=== PATIENT | male | born 1990 | race African-American/Black ===

== ENCOUNTER 2016-09-23 13:37 | Emergency (ER) | payer MEDICARE, MEDICAID ==
[~2016-09-23] VITALS: Ht 180.3 cm; Wt 141.5 kg
[~2016-09-23 13:37] MED LIST: B-CO-5 PO; CALC0.25 PO; CARV3.1240 PO; CINA30TA2 PO; CLON0.2T PO; DILT-5 PO; LOSA100T27 PO; MINO10TA2 PO; NIF10C PO; OMEP20CA5 PO; TERA2CAP45 PO
[2016-09-23 15:03] LABS: Basophils # (auto) 0 uL; Basophils % (auto) 0.2 % (0.0-2.0); Eosinophils # (auto) 0.6 uL; Eosinophils % (auto) 5.2 % (0.0-7.0); Hematocrit 37.6 % (41.0-53.0); Hemoglobin 12.5 g/dL (13.5-17.5); Lymphocytes # (auto) 1.3 uL; Lymphocytes % (auto) 11.1 % (10.0-50.0); Mean Corpuscular Hemoglobin 28.6 pg (28.0-32.0); Mean Corpuscular Hgb Conc. 33.2 g/dL (32.0-36.0); Mean Corpuscular Volume 86.3 fL (80.0-100.0); Mean Platelet Volume 7.3 fL (7.4-10.4); Monocytes # (auto) 0.7 uL; Monocytes % (auto) 5.8 % (0.0-12.0); Neutrophils # (auto) 9.2 uL; Neutrophils % (auto) 77.7 % (37.0-80.0); Platelet Count (auto) 291 10^3/uL (140-450); Red Cell Distribution Width 13.5 % (11.6-16.0); White Blood Cell 11.9 10^3/uL (4.4-10.8)
[2016-09-23 15:25] LABS: Albumin 3.6 g/dL (3.4-5.0); Alkaline Phosphatase 56 U/L (45-117); Anion Gap 14 (5-15); Aspartate Aminotransferase < 3 U/L (15-37); BUN/Creatinine Ratio 6.2; Bilirubin, Total 0.3 mg/dL (0.2-1.0); Calcium 8.9 mg/dL (8.5-10.1); Carbon Dioxide 23 mmol/L (21-32); Chloride 100 mmol/L (98-107); GFR African American 6 mL/min; GFR Non-African American 5 mL/min; Glucose 102 mg/dL (74-106); Potassium 4.6 mmol/L (3.5-5.1); Sodium 137 mmol/L (136-145); Total Protein 8.6 g/dL (6.4-8.2)
[2016-09-23 15:34] LABS: Blood Urea Nitrogen 85 mg/dL (7-18)
[2016-09-23 15:42] VITALS: BP 131/73
[2016-09-23] MEDS ORDERED: HYDROcodone-ACET 5/325MG TAB PO ONE (16:00)
[2016-09-23] MEDS ORDERED: cefTRIAXone W LIDOCAINE 1 GM IM IM ONE (16:00)
== END 2016-09-23 17:45 | disposition home or self-care (01) ==
LOC: ER 13:46
CPT/HCPCS: 36415 ×2; 72070 ×2; 80053 ×2; 84484 ×2; 85025 ×2; 96372 ×2; 99285; J0696 ×2

== ENCOUNTER 2016-11-14 15:21 | Emergency (ER) | payer MEDICARE, MEDICAID ==
[~2016-11-14] VITALS: Ht 180.3 cm; Wt 136.1 kg
[~2016-11-14 15:21] MED LIST changes: -OMEP20CA5 PO; +OMEP20CA74 PO
[2016-11-14 16:16] LABS: Basophils # (auto) 0 uL; Basophils % (auto) 0.2 % (0.0-2.0); CONDITION AutoValidated; Eosinophils # (auto) 0.6 uL; Eosinophils % (auto) 5.8 % (0.0-7.0); Hematocrit 36.5 % (41.0-53.0); Hemoglobin 12.5 g/dL (13.5-17.5); Lymphocytes # (auto) 1.2 uL; Lymphocytes % (auto) 10.6 % (10.0-50.0); Mean Corpuscular Hemoglobin 29.5 pg (28.0-32.0); Mean Corpuscular Hgb Conc. 34.2 g/dL (32.0-36.0); Mean Corpuscular Volume 86.4 fL (80.0-100.0); Mean Platelet Volume 6.9 fL (7.4-10.4); Monocytes # (auto) 0.8 uL; Monocytes % (auto) 7.2 % (0.0-12.0); Neutrophils # (auto) 8.6 uL; Neutrophils % (auto) 76.2 % (37.0-80.0); Platelet Count (auto) 272 10^3/uL (140-450); Red Cell Distribution Width 13.3 % (11.6-16.0); White Blood Cell 11.2 10^3/uL (4.4-10.8)
[2016-11-14 16:28] LABS: Albumin 3.7 g/dL (3.4-5.0); Anion Gap 14 (5-15); Blood Urea Nitrogen 73 mg/dL (7-18); Calcium 7.6 mg/dL (8.5-10.1); Carbon Dioxide 23 mmol/L (21-32); Chloride 102 mmol/L (98-107); Glucose 90 mg/dL (74-106); Potassium 4.1 mmol/L (3.5-5.1); Sodium 139 mmol/L (136-145)
[2016-11-14 16:36] LABS: Alkaline Phosphatase 70 U/L (45-117); BUN/Creatinine Ratio 5.3; Bilirubin, Total 0.3 mg/dL (0.2-1.0); GFR African American 6 mL/min; GFR Non-African American 5 mL/min; Total Protein 8.5 g/dL (6.4-8.2)
[2016-11-14 16:54] LABS: Aspartate Aminotransferase < 3 U/L (15-37)
[2016-11-14] MEDS ORDERED: cloNIDine HCL 0.1 MG TAB PO ONE (21:45)
[2016-11-14 22:35] LABS: B-Type Natriuretic Peptide 39.4 pg/mL (0-100)
[2016-11-14 22:37] LABS: Temperature: 22.9 C (20.0-25.0)
[2016-11-14] MEDS ORDERED: MORPHINE SULFATE 4 MG/ML SYRG IV ONE (22:45)
[2016-11-14] MEDS ORDERED: ONDANSETRON HCL 4 MG/2 ML VIAL IV ONE (22:45)
[2016-11-14] MEDS ORDERED: METOPROLOL TARTRATE 50 MG TAB PO ONE (23:00)
[2016-11-14] MEDS ORDERED: diphenhdrAMINE HCL 50 MG/1 ML VL IV ONE (23:00)
[2016-11-15 00:46] VITALS: BP 156/106
== END 2016-11-15 01:46 | disposition home or self-care (01) ==
LOC: ER 15:26
DX: L30.9 Dermatitis, unspecified (principal); I13.2 Hypertensive heart and chronic kidney disease with heart failure and with stage 5 chronic kidney disease, or end stage renal disease; I50.9 Heart failure, unspecified; N18.6 End stage renal disease; E78.5 Hyperlipidemia, unspecified; E07.9 Disorder of thyroid, unspecified; Z79.899 Other long term (current) drug therapy; Z99.2 Dependence on renal dialysis
CPT/HCPCS: 36415; 80053; 83880; 85025; 93971; 96374; 96375; 99285; J1200; J2270; J2405

== ENCOUNTER 2017-11-09 04:40 | Inpatient (IN) | payer MEDICARE, MEDICAID ==
[~2017-11-09] VITALS: Ht 180.3 cm; Wt 137.6 kg
[2017-11-09 06:03] LABS: Basophils # (auto) 0.1 uL; Basophils % (auto) 0.7 % (0.0-2.0); Eosinophils # (auto) 0.8 uL; Eosinophils % (auto) 7.2 % (0.0-7.0); Hematocrit 33.9 % (41.0-53.0); Hemoglobin 11.5 g/dL (13.5-17.5); Lymphocytes # (auto) 1.5 uL; Lymphocytes % (auto) 14.1 % (10.0-50.0); Mean Corpuscular Hemoglobin 29.1 pg (28.0-32.0); Mean Corpuscular Hgb Conc. 33.9 g/dL (32.0-36.0); Mean Corpuscular Volume 85.7 fL (80.0-100.0); Monocytes # (auto) 1.1 uL; Monocytes % (auto) 10.2 % (0.0-12.0); Neutrophils # (auto) 7.5 uL; Neutrophils % (auto) 67.8 % (37.0-80.0); Platelet Count (auto) 262 10^3/uL (140-450); Red Blood Cells 3.96 10^6/uL (4.5-5.90); Red Cell Distribution Width 13.7 % (11.8-14.3)
[2017-11-09 06:10] LABS: Albumin 3.5 g/dL (3.4-5.0); Calcium 8.1 mg/dL (8.5-10.1); Potassium 3.7 mmol/L (3.5-5.1)
[2017-11-09 06:11] LABS: INR 0.97 (0.9-1.15); Partial Thromboplastin Time 32.4 sec (23.78-33.04); Prothrombin Time 10.4 sec (9.27-12.13)
[2017-11-09 06:19] LABS: BUN/Creatinine Ratio 3.7; Bilirubin, Total 0.2 mg/dL (0.2-1.0); Total Protein 8.2 g/dL (6.4-8.2)
[2017-11-09] MEDS ORDERED: MORPHINE SULF(PF) 0.5MG/ML 10ML VIAL ONE (08:57)
[2017-11-09] MEDS ORDERED: ONDANSETRON HCL 4 MG/2 ML VIAL IV ONE (09:00)
[2017-11-09] MEDS ORDERED: MORPHINE SULFATE 8mg/ml INJ SDV IV ONE (09:00)
[2017-11-09] MEDS ORDERED: cloNIDine HCL 0.1 MG TAB PO ONE (10:15)
[2017-11-09] MEDS ORDERED: LABETALOL HCL 5 MG/ML ML 20ML VIAL IV ONE (10:15)
[2017-11-09] MEDS ORDERED: PROMETHAZINE HCL 25 MG/ML 1ML IV PRN (10:45)
[2017-11-09] MEDS ORDERED: TEMAZEPAM 15 MG CAP PO PRN (10:45)
[2017-11-09] MEDS ORDERED: NITROGLYCERIN 0.4 MG SL TAB SL PRN (10:45)
[2017-11-09] MEDS ORDERED: MORPHINE SULF(PF) 0.5MG/ML 10ML VIAL IV PRN (10:45)
[2017-11-09] MEDS ORDERED: ACETAMINOPHEN 500 MG TAB PO PRN (10:45)
[2017-11-09] MEDS ORDERED: LACTULOSE 20Gm/30ML SOLN PO PRN (10:45)
[2017-11-09] MEDS: CARVEDILOL 3.125 MG TAB PO SCH ×2 (10:45→21:54)
[2017-11-09] MEDS ORDERED: MORPHINE SULFATE 8mg/ml INJ SDV IV PRN (10:45)
[2017-11-09] MEDS ORDERED: LORazepam 0.5 MG TAB PO PRN (10:45)
[2017-11-09 12:13] LABS: Phosphorus 6.1 mg/dL (2.5-4.90); Uric Acid 4.7 mg/dL (3.5-7.2)
[2017-11-09] MEDS: B-COMPLEX W/ C & FOLIC ACID(NEPHROVITE TAB) PO SCH (12:17)
[2017-11-09] MEDS ORDERED: IOHEXOL 350 MG/ML 100ML IJ ONE (13:35)
[2017-11-09] MEDS: SODIUM CHLOR 0.9% PF (SALINE LOCK) 10ML VIAL/SYR IV SCH ×2 (14:00→21:54)
[2017-11-09] MEDS: SEVELAMER 800 MG TAB PO SCH (15:27)
[2017-11-09] MEDS: ISOSORBIDE DINITRATE 10 MG TAB PO SCH ×2 (15:27→21:51)
[2017-11-09 17:00] VITALS: BP 165/84
[2017-11-09] MEDS ORDERED: CINA30TA2 PO (17:59)
[2017-11-09] MEDS ORDERED: DILT60TA27 PO (17:59)
[2017-11-09] MEDS ORDERED: B-CO-5 PO (17:59)
[2017-11-09] MEDS ORDERED: OMEP20TA PO (17:59)
[2017-11-09] MEDS ORDERED: MIN25T PO (17:59)
[2017-11-09] MEDS: LOSARTAN POTASSIUM 50 MG TAB PO SCH ×2 (18:00→21:56)
[2017-11-09 20:00] VITALS: BP 145/83
[2017-11-09] MEDS: HYDROcodone-ACET 5/325MG TAB PO PRN (20:36)
[2017-11-09] MEDS: ATORVASTATIN 20 MG TAB PO SCH (21:17)
[2017-11-09] MEDS: cloNIDine HCL 0.1 MG TAB PO SCH (21:51)
[2017-11-09] MEDS ORDERED: MINOXIDIL 10 MG TAB PO SCH (22:00)
[2017-11-09] MEDS: TERAZOSIN HCL 1 MG CAP PO SCH (22:20)
[2017-11-09 22:58] VITALS: BP 145/83
[2017-11-10] VITALS (8 sets, daily range): BP systolic 96–131; BP diastolic 40–87
[2017-11-10] MEDS: HYDROcodone-ACET 5/325MG TAB PO PRN (04:38)
[2017-11-10] MEDS: ISOSORBIDE DINITRATE 10 MG TAB PO SCH ×3 (05:50→22:00)
[2017-11-10] MEDS: SODIUM CHLOR 0.9% PF (SALINE LOCK) 10ML VIAL/SYR IV SCH ×3 (05:51→22:38)
[2017-11-10 06:26] LABS: Basophils # (auto) 0 uL; Basophils % (auto) 0.3 % (0.0-2.0); Eosinophils # (auto) 0.7 uL; Eosinophils % (auto) 6.9 % (0.0-7.0); Hematocrit 33.4 % (41.0-53.0); Hemoglobin 11.2 g/dL (13.5-17.5); Lymphocytes # (auto) 1.3 uL; Lymphocytes % (auto) 13.9 % (10.0-50.0); Mean Corpuscular Hemoglobin 29.3 pg (28.0-32.0); Mean Corpuscular Hgb Conc. 33.6 g/dL (32.0-36.0); Mean Corpuscular Volume 87.3 fL (80.0-100.0); Monocytes # (auto) 0.9 uL; Monocytes % (auto) 9.3 % (0.0-12.0); Neutrophils # (auto) 6.7 uL; Neutrophils % (auto) 69.6 % (37.0-80.0); Nucleated Red Blood Cells % 0.1 %; Platelet Count (auto) 233 10^3/uL (140-450); Red Blood Cells 3.82 10^6/uL (4.5-5.90); Red Cell Distribution Width 13.7 % (11.8-14.3); White Blood Cell 9.7 10^3/uL (4.4-10.8)
[2017-11-10 06:57] LABS: Alanine Aminotransferase 12 U/L (16-61); Albumin 3.5 g/dL (3.4-5.0); Alkaline Phosphatase 43 U/L (45-117); Anion Gap 10 (5-15); Aspartate Aminotransferase < 3 U/L (15-37); BUN/Creatinine Ratio 3.6; Bilirubin, Total 0.2 mg/dL (0.2-1.0); Blood Urea Nitrogen 36 mg/dL (7-18); Calcium 8.2 mg/dL (8.5-10.1); Carbon Dioxide 30 mmol/L (21-32); Chloride 97 mmol/L (98-107); Cholesterol 146 mg/dL (< 200); GFR African American 8 mL/min; GFR Non-African American 7 mL/min; Glucose 118 mg/dL (74-106); HDL Cholesterol 30 mg/dL (40-59); LDL Cholesterol 100 mg/dL (< 100); Potassium 4.1 mmol/L (3.5-5.1); Sodium 137 mmol/L (136-145); Triglycerides 131 mg/dL (< 150)
[2017-11-10] MEDS: SEVELAMER 800 MG TAB PO SCH ×3 (08:00→18:00)
[2017-11-10] MEDS: B-COMPLEX W/ C & FOLIC ACID(NEPHROVITE TAB) PO SCH (10:00)
[2017-11-10] MEDS ORDERED: NIFEdipine 10 MG CAP PO SCH (10:00)
[2017-11-10] MEDS ORDERED: CINACALCET HYDROCHLORIDE 30 MG TAB PO SCH (10:00)
[2017-11-10] MEDS ORDERED: PANTOPRAZOLE 40 MG TAB PO SCH (10:00)
[2017-11-10] MEDS: CARVEDILOL 3.125 MG TAB PO SCH ×2 (10:00→22:00)
[2017-11-10] MEDS: cloNIDine HCL 0.1 MG TAB PO SCH ×2 (10:00→22:00)
[2017-11-10] MEDS ORDERED: ASPirin 81 mg TAB PO SCH (10:00)
[2017-11-10] MEDS ORDERED: OPTISON 3ml Vial for INJ IV ONE (10:04)
[2017-11-10] MEDS ORDERED: SODIUM CHL 0.9% 1000 ML BAG XX ONE (12:45)
[2017-11-10] MEDS ORDERED: OXYCODONE W/ ACETAMINOPHEN 5/325MG TABLET PO ONE (12:45)
[2017-11-10] MEDS: LOSARTAN POTASSIUM 50 MG TAB PO SCH (18:00)
[2017-11-10] MEDS: TERAZOSIN HCL 1 MG CAP PO SCH (22:00)
[2017-11-10] MEDS: ATORVASTATIN 20 MG TAB PO SCH (22:00)
[2017-11-11] MEDS ORDERED: SODIUM CHL 0.9% 1000 ML BAG XX ONE (09:00)
[2017-11-11] MEDS ORDERED: CALCITRIOL 0.25 MCG CAP PO SCH (10:00)
== END 2017-11-10 22:35 | disposition home or self-care (01) | DRG 291 ==
LOC: ER 04:56 → TELE 04:57 → TELE-WESTW 15:45
PROVIDERS: ADMIT Internal Medicine; ATTEND Internal Medicine
PROC: 5A1D70Z Performance of Urinary Filtration, Intermittent, Less than 6 Hours Per Day (ICD-10-PCS; principal; 2017-11-09)
DX: I13.2 Hypertensive heart and chronic kidney disease with heart failure and with stage 5 chronic kidney disease, or end stage renal disease (principal); N18.6 End stage renal disease; Z68.41 Body mass index [BMI] 40.0-44.9, adult; R07.81 Pleurodynia; I16.0 Hypertensive urgency; I50.9 Heart failure, unspecified; D63.8 Anemia in other chronic diseases classified elsewhere; D72.829 Elevated white blood cell count, unspecified; E03.9 Hypothyroidism, unspecified; E66.01 Morbid (severe) obesity due to excess calories; E78.5 Hyperlipidemia, unspecified; K59.00 Constipation, unspecified; F41.9 Anxiety disorder, unspecified; G47.00 Insomnia, unspecified; E83.39 Other disorders of phosphorus metabolism; K21.9 Gastro-esophageal reflux disease without esophagitis; K44.9 Diaphragmatic hernia without obstruction or gangrene; Z99.2 Dependence on renal dialysis; Z82.49 Family history of ischemic heart disease and other diseases of the circulatory system; Z83.3 Family history of diabetes mellitus; Z87.01 Personal history of pneumonia (recurrent); Z79.899 Other long term (current) drug therapy
CPT/HCPCS: 36415; 71045; 71275; 80053; 80061; 82550; 83970; 84100; 84443; 84484; 84550; 85025; 85379; 85610; 85652; 85730; 86141; 87081; 90935; 93005; 93017; 93306; 96374; 96375; J2405; Q9956

== ENCOUNTER 2018-07-19 04:16 | Emergency (ER) | payer MEDICARE, MEDICAID ==
[~2018-07-19] VITALS: Ht 180.3 cm; Wt 132.9 kg
[~2018-07-19 04:16] MED LIST changes: -DILT-5 PO; +DILT60TA27 PO; +LOSA-49 PO; -LOSA100T27 PO; +MIN25T PO; -MINO10TA2 PO; -NIF10C PO; -OMEP20CA74 PO; +OMEP20TA PO; -TERA2CAP45 PO
[2018-07-19 05:01] VITALS: BP 180/123
[2018-07-19 08:29] LABS: Basophils # (auto) 0 uL; Basophils % (auto) 0.3 % (0.0-2.0); Eosinophils # (auto) 0.8 uL; Hematocrit 34.1 % (41.0-53.0); Hemoglobin 11.5 g/dL (13.5-17.5); Lymphocytes # (auto) 1.5 uL; Mean Corpuscular Hemoglobin 29.5 pg (28.0-32.0); Mean Corpuscular Hgb Conc. 33.7 g/dL (32.0-36.0); Mean Corpuscular Volume 87.5 fL (80.0-100.0); Neutrophils # (auto) 10.7 uL; Neutrophils % (auto) 75.7 % (37.0-80.0); Platelet Count (auto) 250 10^3/uL (140-450); Red Cell Distribution Width 13.4 % (11.8-14.3); White Blood Cell 14.1 10^3/uL (4.4-10.8)
[2018-07-19 08:34] LABS: Albumin 3.8 g/dL (3.4-5.0); Anion Gap 9 (5-15); Blood Urea Nitrogen 56 mg/dL (7-18); Calcium 8.7 mg/dL (8.5-10.1); Carbon Dioxide 28 mmol/L (21-32); Chloride 99 mmol/L (98-107); Glucose 99 mg/dL (74-106); Magnesium 2.7 mg/dL (1.6-2.6); Potassium 3.9 mmol/L (3.5-5.1); Sodium 136 mmol/L (136-145)
[2018-07-19 08:42] LABS: Alanine Aminotransferase 8 U/L (16-61); Alkaline Phosphatase 56 U/L (45-117); Aspartate Aminotransferase < 3 U/L (15-37); BUN/Creatinine Ratio 4.6; Bilirubin, Total 0.3 mg/dL (0.2-1.0); GFR African American 6 mL/min; GFR Non-African American 5 mL/min; Total Protein 8.7 g/dL (6.4-8.2)
== END 2018-07-19 15:09 | disposition left against medical advice (07) ==
LOC: ER 04:16
DX: R03.0 Elevated blood-pressure reading, without diagnosis of hypertension (principal); R07.9 Chest pain, unspecified; Z53.21 Procedure and treatment not carried out due to patient leaving prior to being seen by health care provider
CPT/HCPCS: 36415; 80053; 83735; 84484; 85025; 93005

== ENCOUNTER 2018-11-15 07:05 | Day surgery (SDC) | payer MEDICARE, MEDICAID ==
[~2018-11-15] VITALS: Ht 180.3 cm; Wt 131.5 kg
[~2018-11-15 07:05] MED LIST changes: -B-CO-5 PO; +CARV25TA55 PO; -CARV3.1240 PO; +DILT-23 PO; +HYDR50TA15 PO
[2018-11-15] MEDS ORDERED: LIDOCAINE 2%HCL (LOCAL ANESTH.) INJ 20ML MDV ONE (07:37)
[2018-11-15] MEDS ORDERED: IODIXANOL 320MG/ML 100ML BTL IV ONE ×2 (07:37→08:06)
[2018-11-15] MEDS ORDERED: SODIUM CHL 0.9% 0 ML ONE (07:59)
[2018-11-15] MEDS ORDERED: fentaNYL CITRATE 100 MCG/2 ML VL ONE (07:59)
[2018-11-15] MEDS ORDERED: ANGIOMAX 250 MG VIAL IV ONE (07:59)
[2018-11-15] MEDS ORDERED: VERAPAMIL 2.5MG/ML INJ 2ML VIAL IV ONE (08:00)
[2018-11-15] MEDS ORDERED: MIDAZOLAM HCL 1MG/1ML-2 ML VIAL ONE ×2 (08:00→08:13)
== END 2018-11-15 11:10 | disposition home or self-care (01) ==
LOC: CATH 07:05
PROVIDERS: ATTEND Internal Medicine
DX: R94.39 Abnormal result of other cardiovascular function study (principal); J45.909 Unspecified asthma, uncomplicated; J18.9 Pneumonia, unspecified organism; I11.0 Hypertensive heart disease with heart failure; I50.9 Heart failure, unspecified; Z79.899 Other long term (current) drug therapy; Z86.14 Personal history of Methicillin resistant Staphylococcus aureus infection
CPT/HCPCS: 36252; 93454; C1760; C1769; C1887; C1894; J1644; J2250; J3010; J7030; Q9967; 99152; 99153

== ENCOUNTER 2023-05-02 01:08 | Emergency (ER) | payer MEDICARE, MEDICAID ==
[~2023-05-02] VITALS: Ht 180.3 cm; Wt 162.0 kg
[~2023-05-02 01:08] MED LIST changes: -DILT-23 PO; -DILT60TA27 PO; +HYDR-4297 PO; -HYDR50TA15 PO; +IBUP-1456 PO; -LOSA-49 PO; +LOSA100T58 PO; +[UNRECOGNIZED DRUG - CODE] PO
[2023-05-02 01:27] VITALS: BP 126/106; PULSE 105; RESP 20; O2SAT 97
== END 2023-05-02 07:02 | disposition left against medical advice (07) ==
LOC: ER 01:08
DX: R10.31 Right lower quadrant pain (principal); I10 Essential (primary) hypertension; Z53.21 Procedure and treatment not carried out due to patient leaving prior to being seen by health care provider

== ENCOUNTER 2024-12-02 02:55 | Inpatient (IN) | payer MEDICARE, MEDICAID ==
[~2024-12-02] VITALS: Ht 180.3 cm; Wt 145.7 kg
[2024-12-02] VITALS (7 sets, daily range): BP systolic 123–170; BP diastolic 78–103; PULSE 82–92; RESP 17–21; TEMP 97.5–97.8; O2SAT 90–99
[~2024-12-02 02:55] MED LIST changes: -HYDR-4297 PO; +HYDR50TA47 PO; +LOSA-535 PO; -LOSA100T58 PO
--- NOTE | 2024-12-02 03:01 | ECG ---
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
[2024-12-02] MEDS: NITROGLYCERIN 2% OINT 1GM PKG TD ONE (03:28)
--- NOTE | 2024-12-02 03:29 | ED.PDOC ---
History of Present Illness HPI Comments 34-year-old male with a history of end-stage renal disease status post kidney transplant on dialysis 4 times a week, hypertension, AFib and CHF brought in by EMS evaluation of shortness of breath and chest pain. Patient states after finishing his dialysis session yesterday he felt short of breath, especially when lying supine. He reports associated retrosternal, sharp, nonradiating chest pain. Patient has history of right kidney transplant in 2019, scheduled for right nephrectomy on December 28, 2024 due to failure of the transplant. Patient states for the past month he has been having episodes of hematuria, usually occurring every 3 days. He denies any fever, cough, nausea, vomiting, abdominal or flank pain. Chief Complaint: Chest Pain Time Seen by MD: 03:28 Primary Care Provider: SHENA Reviewed Notes: Nurses Notes Allergies: Coded Allergies: NO KNOWN ALLERGIES (Unverified , 11/13/18) Home Meds Active Scripts Ibuprofen (Ibuprofen) 800 Mg Tab, 1 TAB PO TID for 7 Days, #21 TAB 1 Refill Prov:YADIRA RIDDLE PAC 03/29/22 Reported Medications Hydralazine Hcl (Hydralazine Hcl) 50 Mg Tab, 50 MG PO PRN for 30 Days, MG 11/13/18 Diltiazem Hcl (Diltiazem Hcl Er) 300 Mg Cap, 300 MG PO DAILY, CAP 11/13/18 Calcitriol (Calcitriol) 0.25 Mcg Cap, 0.25 MCG PO DAILY for 30 Days, MCG 11/13/18 Carvedilol (Carvedilol) 25 Mg Tab, 25 MG PO DAILY for 30 Days, MG 11/13/18 Minoxidil (Loniten) 2.5 Mg Tb, 1 TAB PO BID, #180 TAB 1 Refill 11/09/17 Cinacalcet Hydrochloride (Sensipar) 30 Mg Tab, 30 MG PO DAILY, TAB 11/09/17 Omeprazole (Gnp Omeprazole) 20 Mg Tab, 40 MG PO DAILY, TAB 11/09/17 Losartan Potassium (Losartan Potassium) 100 Mg Tab, 1 TAB PO QPM, #30 TAB 5 Refills 08/12/16 Clonidine Hydrochloride (Clonidine Hcl) 0.2 Mg Tab, 1 TAB PO BID, #60 TAB 5 Refills 08/12/16 Information Source: Patient Mode of Arrival: EMS Severity: Moderate Timing: Hours Duration: Since onset Past Medical History PAST MEDICAL HISTORY: AFIB, CHF, ESRD, High Lipids, HTN, Thyroid Past Medical History (Other): Dialysis 4 times a week Surgical History (Other): Right Kidney transplant 2020 at [place] Family History Family History: Reviewed,noncontributory to illness Social History Smoker: Non-Smoker Alcohol: Denies ETOH Use Drugs: Denies Drug Use Lives In: Home Constitutional: denies: chills, diaphoresis, fatigue, fever, malaise, sweats, weakness, others EENTM: denies: blurred vision, double vision, ear bleeding, ear discharge, ear drainage, ear pain, ear ringing, eye pain, eye redness, hearing loss, mouth pain, mouth swelling, nasal discharge, nose bleeding, nose congestion, nose pain, photophobia, tearing, throat pain, throat swelling, voice changes, others Respiratory: reports: orthopnea, SOB at rest, shortness of breath, SOB with excertion; denies: cough, hemoptysis, stridor, wheezing, others Cardiovascular: reports: chest pain, dizzy spells; denies: diaphoresis, Dyspnea on exertion, edema, irregular heart beat, left arm pain, lightheadedness, palpitations, PND, syncope, others Gastrointestinal: denies: abdomen distended, abdominal pain, blood streaked bowels, constipated, diarrhea, dysphagia, difficulty swallowing, hematemesis, melena, nausea, poor appetite, poor fluid intake, rectal bleeding, rectal pain, vomiting, others Genitourinary: denies: burning, dysuria, flank pain, frequency, hematuria, incontinence, penile discharge, penile sore, pain, testicle pain, testicle swelling, urgency, others Neurological: denies: dizziness, fainting, headache, left sided numbness, left sided weakness, numbness, paresthesia, pre-existing deficit, right sided numbness, right sided weakness, seizure, speech problems, tingling, tremors, weakness, others Musculoskeletal: denies: back pain, gout, joint pain, joint swelling, muscle pain, muscle stiffness, neck pain, others Integumetry: denies: bruises, change in color, change in hair/nails, dryness, laceration, lesions, lumps, rash, wounds, others Allergic/Immunocompromised: denies: Difficulty Healing, Frequent Infections, Hives, Itching, others Hematologic/Lymphatic: denies: anemia, blood clots, easy bleeding, easy bruising, swollen glands, others Endocrine: denies: excessive hunger, excessive sweating, excessive thirst, excessive urination, flushing, intolerance to cold, intolerance to heat, unexplained weight gain, unexplained weight loss, others Psychiatric: denies: anxiety, bipolar disorder, depression, hopeless, panic disorder, schizophrenia, sleepless, suicidal, others Physical Exam General Appearance: No Apparent Distress, Obese HEENT: Other (Pupils and face symmetric. Moist mucous membranes.) Neck: Full Range of Motion, Normal Inspection Respiratory: Decreased Breath Sounds, No Accessory Muscle Use, No Respiratory Distress, Rales Cardiovascular: No JVD, Regular Rate/Rhythm Breast Exam: Deferred Gastrointestinal: Non Tender, Soft Genitalia: Deferred Pelvic: Deferred Rectal: Deferred Extremities: Leg edema, Normal range of motion, Non-tender, Pedal edema Neurologic: Alert (Oriented x4), Normal Affect, Normal Mood, Other (Ambulatory) Cerebellar Function: NOT DONE Reflexes: NOT DONE Skin: Dry, Normal Color, Warm Lymphatic: NOT DONE Was a procedure done? Was a procedure done?: No EKG EKG : Comments Sinus rhythm, rate 97, normal MT and QRS intervals, QTC 477, normal axis, normal QRS, no ST/T change. Differential Dx Considerations may include: ACS, MA, arrhythmia, CHF/fluid overload, electrolyte imbalance, anemia, among others X-Ray, Labs, Meds, VS Vital Signs Date Time Temp Pulse Resp B/P (MAP) Pulse Ox O2 Delivery O2 Flow Rate FiO2 12/02/24 04:26 165/110 12/02/24 03:28 159/98 12/02/24 03:25 97.9 95 14 159/98 (118) 99 97.9 12/02/24 03:20 Room Air* 0 21 12/02/24 02:59 97 12/02/24 02:55 98.9 97 20 144/82 (102) 100 98.9 Lab Test 12/02/24 03:52 12/02/24 03:05 Range/Units Troponin I High Sensitivity 23 26 </=54 ng/L White Blood Count 6.9 4.4-10.8 10^3/uL Red Blood Count 3.84 L 4.5-5.90 10^6/uL Hemoglobin 10.4 L 13.5-17.5 g/dL Hematocrit 30.8 L 41.0-53.0 % Mean Corpuscular Volume 80.1 80.0-100.0 fL Mean Corpuscular Hemoglobin 27.1 L 28.0-32.0 pg Mean Corpuscular Hemoglobin Concent 33.9 32.0-36.0 g/dL Red Cell Distribution Width 15.6 H 11.8-14.3 % Platelet Count 198 140-450 10^3/uL Mean Platelet Volume 6.3 L 6.9-10.8 fL Neutrophils (%) (Auto) 54.5 37.0-80.0 % Lymphocytes (%) (Auto) 26.2 10.0-50.0 % Monocytes (%) (Auto) 15.0 H 0.0-12.0 % Eosinophils (%) (Auto) 3.7 0.0-7.0 % Basophils (%) (Auto) 0.6 0.0-2.0 % Neutrophils # (Auto) 3.8 1.6-8.6 10 ^3/uL Lymphocytes # (Auto) 1.8 0.4-5.4 10 ^3/uL Monocytes # (Auto) 1.0 0-1.3 10 ^3/uL Eosinophils # (Auto) 0.3 0-0.8 10 ^3/uL Basophils # (Auto) 0 0-0.2 10 ^3/uL Nucleated Red Blood Cells 0.1 % Sodium Level 133 L 136-145 mmol/L Potassium Level 3.4 L 3.5-5.1 mmol/L Chloride Level 93 L 98-107 mmol/L Carbon Dioxide Level 27 20-31 mmol/L Anion Gap 13 5-15 Blood Urea Nitrogen 27 H 9-23 mg/dL Creatinine 12.40 *H 0.700-1.30 mg/dL Glomerular Filtration Rate Calc 5 >90 mL/min BUN/Creatinine Ratio 2.2 L 10.0-20.0 Serum Glucose 94 74-106 mg/dL Calcium Level 8.7 8.7-10.4 mg/dL B-Type Natriuretic Peptide 144.39 0-100 pg/mL Current Medications Medications (Trade) Dose Ordered Sig/Sravanthi Route Start Time Stop Time Status Last Admin Aspirin 325 mg ONCE ONCE PO 12/02/24 03:15 12/02/24 03:16 DC 12/02/24 03:27 Nitroglycerin (Nitro-Bid) 1 pkg ONCE ONCE TD 12/02/24 03:15 12/02/24 03:16 DC 12/02/24 03:28 CHEST RADIOGRAPH Indication: cp Technique: Single frontal view of the chest was obtained Comparison: None FINDINGS: Lines and Tubes: None Lungs: No focal consolidation. Pleura: No effusion. No pneumothorax. Cardiomediastinal contours: Unremarkable Bones: No acute osseous abnormality. IMPRESSION: Cardiomegaly with CHF X-Ray, Labs, Meds, VS Comment 34-year-old male with a history of end-stage renal disease on dialysis status post kidney transplant and transplant failure, AFib, CHF and hypertension, brought in by EMS complaining of shortness of breath and chest pain Vitals remarkable for BP 144/82 Exam remarkable for diminished breath sounds and rales. No respiratory distress at rest. Rhythm strip independently interpreted by me: Sinus rhythm, rate 97, no ectopy. Chest x-ray IMPRESSION: Cardiomegaly with CHF CBC unremarkable, metabolic panel remarkable for sodium 133, potassium 3.4, chloride 93, BUN 27, creatinine 12.4, 1st troponin negative, BNP 144.39 Patient treated with the following in the ED: Aspirin 325 mg p.o., nitro paste 1/2 inch to chest wall, morphine 4 mg IV, Zofran 4 mg IV with improvement of his shortness of breath and chest pain. Plan is to admit the patient for diuresis and Cardiology evaluation. Time of 1ST Reevaluation: 03:24 Reevaluation 1ST: Unchanged Patient Education/Counseling: Diagnosis, Treatment Family Education/Counseling: No Family Present SEPSIS Sepsis Screen Date sepsis recognized/suspect: Dec 02, 2024 Time Sepsis recognized/suspect: 254 Recent Procedure: No On Antibiotic Therapy: No Respiratory Rate >20: No Heart Rate >90: No Temp<36 C (96.8 F) or >38.3 C: No SBP <90 or MAP <65 mmHG: No New Acute Mental Status Change: No Is the patient on CPAP, BIPAP,: No Physician Orders Chest Portable (12/02/24 02:59) Urinalysis (12/02/24 02:59) Troponin-I Hs (12/02/24 05:59) Electrocardigram (12/02/24 03:59) Electrocardigram (12/02/24 05:59) Morphine Sulfate Injection (12/02/24 05:30) Ondansetron Hcl (Zofran) (12/02/24 05:30) Vital Signs Date Time Temp Pulse Resp B/P (MAP) Pulse Ox O2 Delivery O2 Flow Rate FiO2 12/02/24 04:26 165/110 12/02/24 03:28 159/98 12/02/24 03:25 97.9 95 14 159/98 (118) 99 97.9 12/02/24 03:20 Room Air* 0 21 12/02/24 02:59 97 12/02/24 02:55 98.9 97 20 144/82 (102) 100 98.9 Laboratory Tests Test 12/02/24 03:05 White Blood Count 6.9 10^3/uL (4.4-10.8) Medications Medications Dose Ordered Sig/Sravanthi Route Start Time Stop Time Status Last Admin Dose Admin Aspirin 325 mg ONCE ONCE PO 12/02/24 03:15 12/02/24 03:16 DC 12/02/24 03:27 Nitroglycerin 1 pkg ONCE ONCE TD 12/02/24 03:15 12/02/24 03:16 DC 12/02/24 03:28 Departure 1 Departure Time of Disposition: 04:36 Impression: Primary Impression: Chest pain with high risk for cardiac etiology Additional Impression: CHF exacerbation Disposition: 09 ADMITTED INPATIENT Admit to: Tele Condition: Guarded Critical Care Note Critical Care Time?: Yes (35 min-critical care time only) Critical care comment: Critical care time including multiple bedside re-evaluations, review of lab and imaging studies, and discussion of the case with the admitting provider. Patient is high risk for respiratory and/or hemodynamic decompensation. Stability Stability form required: No Heart Score Heart Score: Heart Score Response (Comments) Value History Moderate Suspicious 1 EKG Normal 0 Age <45 0 Risk Factors >3 or Hx ASHD 2 Troponin Normal limit 0 Total 3 I personally scribed for DAKOTAH GARCIA MD ([email or web address]) on 12/02/24 at 03:29. Electronically submitted by Dwayne Espinosa ([facility] I personally scribed for DAKOTAH GARCIA MD ([facility] on 12/02/24 at 03:29. Electronically submitted by Dwayne Espinosa ([facility]). I personally scribed for DAKOTAH GARCIA MD ([email or web address]) on 12/02/24 at 04:27. Electronically submitted by Dwayne Espinosa ([facility]). DAKOTAH GARCIA MD Dec 02, 2024 03:29
[2024-12-02 03:30] LABS: Hematocrit 30.8 % (41.0-53.0); Hemoglobin 10.4 g/dL (13.5-17.5); Mean Corpuscular Hemoglobin 27.1 pg (28.0-32.0); Mean Corpuscular Volume 80.1 fL (80.0-100.0); Nucleated Red Blood Cells % 0.1 %
[2024-12-02 03:34] LABS: Calcium 8.7 mg/dL (8.7-10.4)
[2024-12-02 03:35] LABS: Anion Gap 13 (5-15); Carbon Dioxide 27 mmol/L (20-31); Chloride 93 mmol/L (98-107); Potassium 3.4 mmol/L (3.5-5.1); Sodium 133 mmol/L (136-145)
[2024-12-02 03:40] LABS: BUN/Creatinine Ratio 2.2 (10.0-20.0); Glucose 94 mg/dL (74-106)
[2024-12-02 03:44] LABS: Blood Urea Nitrogen 27 mg/dL (9-23)
--- NOTE | 2024-12-02 04:18 | DVH ---
CHEST RADIOGRAPH Indication: cp Technique: Single frontal view of the chest was obtained Comparison: None FINDINGS: Lines and Tubes: None Lungs: No focal consolidation. Pleura: No effusion. No pneumothorax. Cardiomediastinal contours: Unremarkable Bones: No acute osseous abnormality. IMPRESSION: Cardiomegaly with CHF
[2024-12-02] MEDS ORDERED: ONDANSETRON HCL 4 MG/2 ML VIAL IV PRN (05:30)
[2024-12-02] MEDS: ONDANSETRON HCL 4 MG/2 ML VIAL IV ONE (05:35)
[2024-12-02] MEDS: MORPHINE SULFATE 4 MG/ML SYR/VIAL IV ONE (05:36)
[2024-12-02] MEDS: ACETAMINOPHEN 325 MG TAB PO PRN (05:37)
[2024-12-02] MEDS: SODIUM CHLOR 0.9% PF (SALINE LOCK) 10ML VIAL/SYR IV SCH (06:00)
[2024-12-02] MEDS ORDERED: NITROGLYCERIN 0.4 MG SL TAB SL PRN (06:15)
[2024-12-02] MEDS ORDERED: MORPHINE SULFATE INJ 2 MG/ml SYRG IV PRN (06:15)
--- NOTE | 2024-12-02 06:30 | DVHHP2 ---
History of Present Illness Reason for Visit: Chest pain with high risk for cardiac etiology History of Present Illness The patient is a 34-year-old male with past medical history of AFib, CHF, end-stage renal disease on hemodialysis, hyperlipidemia, thyroid disease, and hypertension who presented to [facility] ED with complaint of chest pain. Patient reports he has been experiencing chest pain, associated with shortness of breaths during dialysis session, worse with supine position, sharp in nature, constant, getting worse that prompted this visit. Patient states she had right kidney transplant in 2019, scheduled for right nephrectomy on December 28, 2024 due to failure of the transplant. Patient reports for the past month he has been having episodes of hematuria, usually occurring every 3 days. Patient was seen and evaluated in the ED, laboratory data shows WBC 6.9, hemoglobin 10.4, hematocrit 30.8, platelets 198, sodium 133, potassium 3.4, BUN 27, creatinine 12.40, glucose 94, calcium 8.7, troponin 26, BNP 144.34, blood pressure 165/110 trending down to 150/98, heart rate 95, temperature 97.9 F, O2 saturation 99% on room air. Chest x-ray revealing cardiomegaly with CHF. Please see medication orders section in the computer. On my assessment, patient denied chest pain, no headache, no dizziness, no diaphoresis, no shortness of breaths, no nausea, no vomiting, no fever, no chills. Patient was admitted for further evaluation and medical management. Past Medical History AFIB, CHF, ESRD on dialysis q.i.d. a week, High Lipids, HTN, Thyroid Past Surgical History Right Kidney transplant 2019 at [place], Dialysis access Family History Reviewed, noncontributory to the management of this case. Past Social History The patient lives at home, denies smoking, alcohol or illicit drugs abuse. Review of Systems Constitutional: No: Fever, Chills, Sweats, Weakness, Malaise, Other Eyes: No: Pain, Vision change, Conjunctivae inflammation, Eyelid inflammation, Other, Redness ENT: No: Ear pain, Ear discharge, Nose pain, Nose discharge, Nose congestion, Mouth pain, Mouth swelling, Throat pain, Throat swelling, Other Respiratory: Shortness of breath, SOB with excertion, Other (Orthopnea, SOB at rest.); No: Cough, Dry, Wheezing, Hemoptysis, Pleuritic Pain, Sputum, Wheezing Cardiovascular: Chest Pain; No: Palpitations, Orthopnea, Paroxysmal Noc. Dyspnea, Edema, Lt Headedness, Other Gastrointestinal: No: Nausea, Vomiting, Abdominal Pain, Diarrhea, Constipation, Melena, Hematochezia, Other Genitourinary: No Dysuria, No Frequency, No Incontinence, No Hematuria, No Retention; Other (On hemodialysis) Musculoskeletal: No: other, neck pain, shoulder pain, arm pain, back pain, hand pain, leg pain, foot pain Skin: No: Rash, Lesions, Jaundice, Bruising, Other Neurological: No: Weakness, Numbness, Incoordination, Change in speech, Confusion, Seizures, Other Allergies: Coded Allergies: NO KNOWN ALLERGIES (Unverified , 11/13/18) Medications Current Medications Medications Dose Ordered Sig/Sravanthi Route Start Time Stop Time Status Last Admin Dose Admin Famotidine 20 mg DAILY IV 12/02/24 10:00 Carvedilol 25 mg Q12HR PO 12/02/24 10:00 Clonidine HCl 0.2 mg Q6HP PRN PO 12/02/24 05:30 Aspirin 81 mg DAILY PO 12/02/24 10:00 Multivit/Ca Carb/ B Cmplx/FA/Prenat 1 tab DAILY PO 12/02/24 10:00 Sevelamer HCl 800 mg TIDWM PO 12/02/24 08:00 Calcium Acetate 667 mg TIDWMEALS PO 12/02/24 08:00 Sodium Chloride 10 ml Q8HR IV 12/02/24 06:00 Acetaminophen/ Hydrocodone Bitart 1 tab Q4HP PRN PO 12/02/24 05:30 Ondansetron HCl 4 mg Q4HP PRN IV 12/02/24 05:30 Docusate Sodium 100 mg BIDPRN PRN PO 12/02/24 05:30 Acetaminophen 650 mg Q6HP PRN PO 12/02/24 05:30 12/02/24 05:37 650 MG Exam Vital Signs Vital Signs Date Time Temp Pulse Resp B/P (MAP) Pulse Ox O2 Delivery O2 Flow Rate FiO2 12/02/24 05:36 92 16 150/110 12/02/24 03:25 97.9 99 97.9 12/02/24 03:20 Room Air* 0 21 General Appearance: Alert, Oriented X3, Cooperative, No acute distress HEENT: Atraumatic, PERRLA, EOMI, Mucous membr. moist/pink Respiratory: Normal air movement Cardiovascular: Regular rate, Normal S1, Normal S2, No murmurs Abdominal: Normal bowel sounds, Soft, No tenderness, No hepatospenomegaly, No masses Extremities: No clubbing, No cyanosis, No edema, Normal pulses, No tenderness/swelling Skin: No rashes, No breakdown, No significant lesion Neuro: Normal gait, Normal speech, Strength at 5/5 X4 ext, Normal tone, Sensation intact, Cranial nerves 3-12 NL, Reflexes 2+ Psych/Mental Status: Mental status NL, Mood NL Labs/Xrays Labs Test 12/02/24 03:52 12/02/24 03:05 Range/Units Troponin I High Sensitivity 23 </=54 ng/L White Blood Count 6.9 4.4-10.8 10^3/uL Red Blood Count 3.84 L 4.5-5.90 10^6/uL Hemoglobin 10.4 L 13.5-17.5 g/dL Hematocrit 30.8 L 41.0-53.0 % Mean Corpuscular Volume 80.1 80.0-100.0 fL Mean Corpuscular Hemoglobin 27.1 L 28.0-32.0 pg Mean Corpuscular Hemoglobin Concent 33.9 32.0-36.0 g/dL Red Cell Distribution Width 15.6 H 11.8-14.3 % Platelet Count 198 140-450 10^3/uL Mean Platelet Volume 6.3 L 6.9-10.8 fL Neutrophils (%) (Auto) 54.5 37.0-80.0 % Lymphocytes (%) (Auto) 26.2 10.0-50.0 % Monocytes (%) (Auto) 15.0 H 0.0-12.0 % Eosinophils (%) (Auto) 3.7 0.0-7.0 % Basophils (%) (Auto) 0.6 0.0-2.0 % Neutrophils # (Auto) 3.8 1.6-8.6 10 ^3/uL Lymphocytes # (Auto) 1.8 0.4-5.4 10 ^3/uL Monocytes # (Auto) 1.0 0-1.3 10 ^3/uL Eosinophils # (Auto) 0.3 0-0.8 10 ^3/uL Basophils # (Auto) 0 0-0.2 10 ^3/uL Nucleated Red Blood Cells 0.1 % Sodium Level 133 L 136-145 mmol/L Potassium Level 3.4 L 3.5-5.1 mmol/L Chloride Level 93 L 98-107 mmol/L Carbon Dioxide Level 27 20-31 mmol/L Anion Gap 13 5-15 Blood Urea Nitrogen 27 H 9-23 mg/dL Creatinine 12.40 *H 0.700-1.30 mg/dL Glomerular Filtration Rate Calc 5 >90 mL/min BUN/Creatinine Ratio 2.2 L 10.0-20.0 Serum Glucose 94 74-106 mg/dL Calcium Level 8.7 8.7-10.4 mg/dL B-Type Natriuretic Peptide 144.39 0-100 pg/mL PATIENT: CRISS RODRIGUES ACCT: [id number] UNIT: [id number] : 1990 LOC: ER ROOM / BED: / AGE / SEX: 34 / M ADM STATUS: REG ER SERVICE [id number] ORDERING PHYSICIAN: DAKOTAH GARCIA MD PROCEDURE(s): CXRP - CHEST PORTABLE REASON: cp ORDER NUMBER(s): [id number], ACCESSION NUMBER(s): [id number] CHEST RADIOGRAPH Indication: cp Technique: Single frontal view of the chest was obtained Comparison: None FINDINGS: Lines and Tubes: None Lungs: No focal consolidation. Pleura: No effusion. No pneumothorax. Cardiomediastinal contours: Unremarkable Bones: No acute osseous abnormality. IMPRESSION: Cardiomegaly with CHF Assessment/Plan Assessment/Plan Chest pain with high risk for cardiac etiology Electrolyte imbalance Hypertensive urgency Acute respiratory distress End-stage renal disease on hemodialysis Plan 1. Admit to telemetry unit 2. Breathing treatment 3. Pain control management 4. Management of fluids and electrolytes 5. Consultation for Nephrology 6. Diagnostic tests chest x-ray 7. DVT prophylaxis-on SCDs 8. Repeat labs CBC, CMP in a.m. 9. Continue with current medical management 10. Treatment plan discussed with patient and RN. Patient verbalized understanding. Plan discussed with: Patient, Other (RN) My Orders Orders - VIDAL BRAN DNP Procedure Category Date Status Time Complete Blood Count LAB 12/02/24 Logged 05:17 Comprehensive LAB 12/02/24 Logged Metabolic Panel 05:17 Famotidine Injection PHA 12/02/24 In Process (Pepcid Injection) 10:00 Carvedilol Tablet PHA 12/02/24 In Process (Coreg Tablet) 10:00 Clonidine Hcl Tablet PHA 12/02/24 In Process (Catapres Tablet) 05:30 Aspirin Tablet PHA 12/02/24 In Process 10:00 *[facility] CONS 12/02/24 Transmitted -[place] 05:17 B-Complex W/ C & PHA 12/02/24 In Process Folic Tablet 10:00 Sevelamer (Renagel) PHA 12/02/24 In Process 08:00 Calcium Acetate PHA 12/02/24 In Process Capsule (Phoslo 08:00 Allergies VANESSA 12/02/24 In Process 05:17 Code Status CODE 12/02/24 Transmitted 05:17 Renal DIET 12/02/24 Transmitted Standard(2gna,3gk,Lopho) Breakfast Sodium Chloride Lock PHA 12/02/24 In Process (Saline Lock Ns) 06:00 Oxygen Per Hour RT 12/02/24 Transmitted 05:17 Hydrocodone-Acet PHA 12/02/24 In Process 5/325mg Tab ([place] 05:30 Ondansetron Hcl PHA 12/02/24 In Process (Zofran) 05:30 Docusate Sodium PHA 12/02/24 In Process Capsule (Colace 05:30 Complete Blood Count LAB 12/03/24 Verified 04:00 Comprehensive LAB 12/03/24 Verified Metabolic Panel 04:00 Condition: Serious VANESSA 12/02/24 In Process 05:17 Acetaminophen Tablet PHA 12/02/24 In Process (Tylenol Tablet) 05:30 Bedrest With Bathroom VANESSA 12/02/24 In Process Privileg 05:17 Sequential VANESSA 12/02/24 In Process Compression Device Problem List: (1) Chest pain with high risk for cardiac etiology (2) Electrolyte imbalance (3) Hypertensive urgency (4) Acute respiratory distress (5) ESRD (end stage renal disease) on dialysis Date of Service: Dec 02, 2024 Billing Provider: VIDAL BRAN DNP Common Visit Codes: [id number] INP/OBS CARE (HIGH) VIDAL BRAN DNP Dec 02, 2024 06:30
[2024-12-02 06:34] LABS: Hematocrit 29.1 % (41.0-53.0); Hemoglobin 9.8 g/dL (13.5-17.5); Mean Corpuscular Hemoglobin 27.0 pg (28.0-32.0); Mean Corpuscular Volume 80.1 fL (80.0-100.0); Nucleated Red Blood Cells % 0.0 %
[2024-12-02 06:58] LABS: Alanine Aminotransferase 11 U/L (7-40); Albumin 4.0 g/dL (3.2-4.8); Alkaline Phosphatase 54 U/L (46-116); Anion Gap 13 (5-15); BUN/Creatinine Ratio 2.1 (10.0-20.0); Calcium 9.3 mg/dL (8.7-10.4); Carbon Dioxide 27 mmol/L (20-31); Glucose 84 mg/dL (74-106); Total Protein 7.4 g/dL (5.7-8.2)
[2024-12-02 07:06] LABS: Bilirubin, Total 0.2 mg/dL (0.2-1.0); Blood Urea Nitrogen 28 mg/dL (9-23); Chloride 94 mmol/L (98-107); Potassium 3.3 mmol/L (3.5-5.1); Sodium 134 mmol/L (136-145)
[2024-12-02] MEDS: CALCIUM ACETATE 667 MG CAP PO SCH (08:12)
[2024-12-02] MEDS: SEVELAMER 800 MG TAB PO SCH (08:44)
[2024-12-02] MEDS: HYDROcodone-ACET 5/325MG TAB PO PRN (10:24)
[2024-12-02] MEDS: B-COMPLEX W/ C & FOLIC ACID(NEPHROVITE TAB) PO SCH (10:24)
[2024-12-02] MEDS: FAMOTIDINE (10MG/ML) 2ML VL IV SCH (10:25)
[2024-12-02] MEDS: CARVEDILOL 12.5 MG TAB PO SCH (10:25)
--- NOTE | 2024-12-02 11:08 | DVHINCON2 ---
Date of service: Dec 02, 2024 Referring Physician Regis Martinez NP Reason for Consultation ESRD History of Present Illness Mr. Hicks is a 34-year-old male with known history of ESRD, heart failure, hypertension who presented for further evaluation and management of chest pain after he completed his home in a hemodialysis treatment yesterday. He reports worsening of symptoms when he is lying supine with associated shortness of breath. Denies diaphoresis or radiation of the pain to other areas. He is currently seen in his room on telemetry awake alert conversant and no acute distress. 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 Past Medical History ESRD Hypertension Anemia Obesity Allergies: Coded Allergies: NO KNOWN ALLERGIES (Unverified , 11/13/18) Home Meds Active Scripts Ibuprofen (Ibuprofen) 800 Mg Tab, 1 TAB PO TID for 7 Days, #21 TAB 1 Refill Prov:YADIRA RIDDLE PAC 03/29/22 Reported Medications Hydralazine Hcl (Hydralazine Hcl) 50 Mg Tab, 50 MG PO PRN for 30 Days, MG 11/13/18 Diltiazem Hcl (Diltiazem Hcl Er) 300 Mg Cap, 300 MG PO DAILY, CAP 11/13/18 Calcitriol (Calcitriol) 0.25 Mcg Cap, 0.25 MCG PO DAILY for 30 Days, MCG 11/13/18 Carvedilol (Carvedilol) 25 Mg Tab, 25 MG PO DAILY for 30 Days, MG 11/13/18 Minoxidil (Loniten) 2.5 Mg Tb, 1 TAB PO BID, #180 TAB 1 Refill 11/09/17 Cinacalcet Hydrochloride (Sensipar) 30 Mg Tab, 30 MG PO DAILY, TAB 11/09/17 Omeprazole (Gnp Omeprazole) 20 Mg Tab, 40 MG PO DAILY, TAB 11/09/17 Losartan Potassium (Losartan Potassium) 100 Mg Tab, 1 TAB PO QPM, #30 TAB 5 Refills 08/12/16 Clonidine Hydrochloride (Clonidine Hcl) 0.2 Mg Tab, 1 TAB PO BID, #60 TAB 5 Refills 08/12/16 Current Medications Current Medications Medications (Trade) Dose Ordered Sig/Sravanthi Route PRN Reason Start Time Stop Time Status Last Admin Famotidine (Pepcid Injection) 20 mg DAILY IV 12/02/24 10:00 12/02/24 10:25 Carvedilol (Coreg Tablet) 25 mg Q12HR PO 12/02/24 10:00 12/02/24 10:25 Clonidine HCl (Catapres Tablet) 0.2 mg Q6HP PRN PO SBP>160 12/02/24 05:30 Aspirin 81 mg DAILY PO 12/02/24 10:00 12/02/24 10:25 Multivit/Ca Carb/ B Cmplx/FA/Prenat (Nephro-Eliezer Tablet) 1 tab DAILY PO 12/02/24 10:00 12/02/24 10:24 Sevelamer HCl (Renagel) 800 mg TIDWM PO 12/02/24 08:00 12/02/24 08:44 Calcium Acetate (Phoslo Capsule) 667 mg TIDWMEALS PO 12/02/24 08:00 12/02/24 08:12 Sodium Chloride (Saline Lock Ns) 10 ml Q8HR IV 12/02/24 06:00 12/02/24 06:00 Acetaminophen/ Hydrocodone Bitart ([place] 5/325MG Tab) 1 tab Q4HP PRN PO MODERATE PAIN (4-6 PAIN SCALE) 12/02/24 05:30 12/02/24 10:24 Ondansetron HCl (Zofran) 4 mg Q4HP PRN IV NAUSEA / VOMITING 12/02/24 05:30 Docusate Sodium (Colace Capsule) 100 mg BIDPRN PRN PO FOR CONSTIPATION 12/02/24 05:30 Acetaminophen (Tylenol Tablet) 650 mg Q6HP PRN PO PAIN SCALE 1-3 OR TEMP>100.4 12/02/24 05:30 12/02/24 08:13 Nitroglycerin (Ntrostat Sublingual) 0.4 mg Q5MINP PRN SL FOR CHEST PAIN 12/02/24 06:15 Morphine Sulfate 2 mg Q30M PRN IV FOR CHEST PAIN 12/02/24 06:15 Family History: Family history: Hypertension G8 MOTHER G8 FATHER GRANDPA AUNT Review of Systems Denies fevers, chills, hematochezia, hemoptysis, abdominal pain. H&P Exam Vital Signs/I&O Vital Sign Date Time Temp Pulse Resp B/P (MAP) Pulse Ox O2 Delivery O2 Flow Rate FiO2 12/02/24 10:25 85 170/103 12/02/24 09:37 97.8 98 97.8 12/02/24 09:37 19 Nasal Cannula* 2 28 Physical Exam Gen: nad heent: nc/at, mmm lungs: cta anteriorly cvs: no rub abd: soft, bowel sounds audible ext: + edema skin: no rash neuro: alert and oriented Labs/Diagnostic Data Labs/Diagnostic Data Laboratory Tests Test 12/02/24 06:09 12/02/24 03:52 12/02/24 03:05 Range/Units White Blood Count 6.8 6.9 4.4-10.8 10^3/uL Red Blood Count 3.63 L 3.84 L 4.5-5.90 10^6/uL Hemoglobin 9.8 L 10.4 L 13.5-17.5 g/dL Hematocrit 29.1 L 30.8 L 41.0-53.0 % Mean Corpuscular Volume 80.1 80.1 80.0-100.0 fL Mean Corpuscular Hemoglobin 27.0 L 27.1 L 28.0-32.0 pg Mean Corpuscular Hemoglobin Concent 33.7 33.9 32.0-36.0 g/dL Red Cell Distribution Width 15.7 H 15.6 H 11.8-14.3 % Platelet Count 198 198 140-450 10^3/uL Mean Platelet Volume 6.3 L 6.3 L 6.9-10.8 fL Neutrophils (%) (Auto) 53.7 54.5 37.0-80.0 % Lymphocytes (%) (Auto) 26.8 26.2 10.0-50.0 % Monocytes (%) (Auto) 15.4 H 15.0 H 0.0-12.0 % Eosinophils (%) (Auto) 3.8 3.7 0.0-7.0 % Basophils (%) (Auto) 0.3 0.6 0.0-2.0 % Neutrophils # (Auto) 3.7 3.8 1.6-8.6 10 ^3/uL Lymphocytes # (Auto) 1.8 1.8 0.4-5.4 10 ^3/uL Monocytes # (Auto) 1.1 1.0 0-1.3 10 ^3/uL Eosinophils # (Auto) 0.3 0.3 0-0.8 10 ^3/uL Basophils # (Auto) 0 0 0-0.2 10 ^3/uL Nucleated Red Blood Cells 0.0 0.1 % Sodium Level 134 L 133 L 136-145 mmol/L Potassium Level 3.3 L 3.4 L 3.5-5.1 mmol/L Chloride Level 94 L 93 L 98-107 mmol/L Carbon Dioxide Level 27 27 20-31 mmol/L Anion Gap 13 13 5-15 Blood Urea Nitrogen 28 H 27 H 9-23 mg/dL Creatinine 13.25 *H 12.40 *H 0.700-1.30 mg/dL Glomerular Filtration Rate Calc 5 5 >90 mL/min BUN/Creatinine Ratio 2.1 L 2.2 L 10.0-20.0 Serum Glucose 84 94 74-106 mg/dL Calcium Level 9.3 8.7 8.7-10.4 mg/dL Total Bilirubin 0.2 0.2-1.0 mg/dL Aspartate Amino Transferase (AST) 11 L 13-40 U/L Alanine Aminotransferase (ALT) 11 7-40 U/L Alkaline Phosphatase 54 46-116 U/L Troponin I High Sensitivity 21 23 26 </=54 ng/L Total Protein 7.4 5.7-8.2 g/dL Albumin 4.0 3.2-4.8 g/dL B-Type Natriuretic Peptide 144.39 0-100 pg/mL Assessment IMP: 1) ESRD on home hemodialysis 2) chest pain 3) status post failed kidney transplant 4) anemia 5) obesity REC: - dialysis today for added ultrafiltration should pulmonary edema be partly in etiology for his symptoms - discussed plan of care with Juan Diego Plan discussed with: Patient ANABEL AG MD Dec 02, 2024 11:08
[2024-12-02] MEDS: DOCUSATE SOD 100 MG CAP PO PRN (12:07)
--- NOTE | 2024-12-02 12:59 | DVHINCON2 ---
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 trops are- . pt had -[facility] with me 2019 Past Medical History reviewed Family History: Family history: Hypertension G8 MOTHER G8 FATHER GRANDPA AUNT Allergies: Coded Allergies: NO KNOWN ALLERGIES (Unverified , 11/13/18) Home Meds Active Scripts Ibuprofen (Ibuprofen) 800 Mg Tab, 1 TAB PO TID for 7 Days, #21 TAB 1 Refill Prov:JANESSAYADIRA PAC 03/29/22 Reported Medications Hydralazine Hcl (Hydralazine Hcl) 50 Mg Tab, 50 MG PO PRN for 30 Days, MG 11/13/18 Diltiazem Hcl (Diltiazem Hcl Er) 300 Mg Cap, 300 MG PO DAILY, CAP 11/13/18 Calcitriol (Calcitriol) 0.25 Mcg Cap, 0.25 MCG PO DAILY for 30 Days, MCG 11/13/18 Carvedilol (Carvedilol) 25 Mg Tab, 25 MG PO DAILY for 30 Days, MG 11/13/18 Minoxidil (Loniten) 2.5 Mg Tb, 1 TAB PO BID, #180 TAB 1 Refill 11/09/17 Cinacalcet Hydrochloride (Sensipar) 30 Mg Tab, 30 MG PO DAILY, TAB 11/09/17 Omeprazole (Gnp Omeprazole) 20 Mg Tab, 40 MG PO DAILY, TAB 11/09/17 Losartan Potassium (Losartan Potassium) 100 Mg Tab, 1 TAB PO QPM, #30 TAB 5 Refills 08/12/16 Clonidine Hydrochloride (Clonidine Hcl) 0.2 Mg Tab, 1 TAB PO BID, #60 TAB 5 Refills 08/12/16 Current Medications Current Medications Medications (Trade) Dose Ordered Sig/Sravanthi Route PRN Reason Start Time Stop Time Status Last Admin Famotidine (Pepcid Injection) 20 mg DAILY IV 12/02/24 10:00 12/02/24 10:25 Carvedilol (Coreg Tablet) 25 mg Q12HR PO 12/02/24 10:00 12/02/24 10:25 Clonidine HCl (Catapres Tablet) 0.2 mg Q6HP PRN PO SBP>160 12/02/24 05:30 Aspirin 81 mg DAILY PO 12/02/24 10:00 12/02/24 10:25 Multivit/Ca Carb/ B Cmplx/FA/Prenat (Nephro-Eliezer Tablet) 1 tab DAILY PO 12/02/24 10:00 12/02/24 10:24 Sevelamer HCl (Renagel) 800 mg TIDWM PO 12/02/24 08:00 12/02/24 12:03 Calcium Acetate (Phoslo Capsule) 667 mg TIDWMEALS PO 12/02/24 08:00 12/02/24 12:03 Sodium Chloride (Saline Lock Ns) 10 ml Q8HR IV 12/02/24 06:00 12/02/24 12:10 Acetaminophen/ Hydrocodone Bitart ([place] 5/325MG Tab) 1 tab Q4HP PRN PO MODERATE PAIN (4-6 PAIN SCALE) 12/02/24 05:30 12/02/24 10:24 Ondansetron HCl (Zofran) 4 mg Q4HP PRN IV NAUSEA / VOMITING 12/02/24 05:30 Docusate Sodium (Colace Capsule) 100 mg BIDPRN PRN PO FOR CONSTIPATION 12/02/24 05:30 12/02/24 12:07 Acetaminophen (Tylenol Tablet) 650 mg Q6HP PRN PO PAIN SCALE 1-3 OR TEMP>100.4 12/02/24 05:30 12/02/24 08:13 Nitroglycerin (Ntrostat Sublingual) 0.4 mg Q5MINP PRN SL FOR CHEST PAIN 12/02/24 06:15 Morphine Sulfate 2 mg Q30M PRN IV FOR CHEST PAIN 12/02/24 06:15 Review of Systems 10 pt ros otherwise negative Vital Signs Vital Signs Date Time Temp Pulse Resp B/P (MAP) Pulse Ox O2 Delivery O2 Flow Rate FiO2 12/02/24 11:25 87 153/102 12/02/24 09:37 97.8 98 97.8 12/02/24 09:37 19 Nasal Cannula* 2 28 Physical Exam nad s1 s2 rrr ctab soft nt/nd no edema Labs/Diagnostic Data Labs Test 12/02/24 06:09 12/02/24 03:05 Range/Units White Blood Count 6.8 4.4-10.8 10^3/uL Red Blood Count 3.63 L 4.5-5.90 10^6/uL Hemoglobin 9.8 L 13.5-17.5 g/dL Hematocrit 29.1 L 41.0-53.0 % Mean Corpuscular Volume 80.1 80.0-100.0 fL Mean Corpuscular Hemoglobin 27.0 L 28.0-32.0 pg Mean Corpuscular Hemoglobin Concent 33.7 32.0-36.0 g/dL Red Cell Distribution Width 15.7 H 11.8-14.3 % Platelet Count 198 140-450 10^3/uL Mean Platelet Volume 6.3 L 6.9-10.8 fL Neutrophils (%) (Auto) 53.7 37.0-80.0 % Lymphocytes (%) (Auto) 26.8 10.0-50.0 % Monocytes (%) (Auto) 15.4 H 0.0-12.0 % Eosinophils (%) (Auto) 3.8 0.0-7.0 % Basophils (%) (Auto) 0.3 0.0-2.0 % Neutrophils # (Auto) 3.7 1.6-8.6 10 ^3/uL Lymphocytes # (Auto) 1.8 0.4-5.4 10 ^3/uL Monocytes # (Auto) 1.1 0-1.3 10 ^3/uL Eosinophils # (Auto) 0.3 0-0.8 10 ^3/uL Basophils # (Auto) 0 0-0.2 10 ^3/uL Nucleated Red Blood Cells 0.0 % Sodium Level 134 L 136-145 mmol/L Potassium Level 3.3 L 3.5-5.1 mmol/L Chloride Level 94 L 98-107 mmol/L Carbon Dioxide Level 27 20-31 mmol/L Anion Gap 13 5-15 Blood Urea Nitrogen 28 H 9-23 mg/dL Creatinine 13.25 *H 0.700-1.30 mg/dL Glomerular Filtration Rate Calc 5 >90 mL/min BUN/Creatinine Ratio 2.1 L 10.0-20.0 Serum Glucose 84 74-106 mg/dL Calcium Level 9.3 8.7-10.4 mg/dL Total Bilirubin 0.2 0.2-1.0 mg/dL Aspartate Amino Transferase (AST) 11 L 13-40 U/L Alanine Aminotransferase (ALT) 11 7-40 U/L Alkaline Phosphatase 54 46-116 U/L Troponin I High Sensitivity 21 </=54 ng/L Total Protein 7.4 5.7-8.2 g/dL Albumin 4.0 3.2-4.8 g/dL B-Type Natriuretic Peptide 144.39 0-100 pg/mL Assessment esrd on HD chest pain r/o acs HTN HL renal tx graft faiulre obesity Plan/Recommendation pt had negative LHC with me 2018, images indepenedently reviewed negative lexiscan with me in past 1-2 years likely acs ruled out check echo bp control Plan discussed with: Patient ERROL GRADY MD Dec 02, 2024 12:59
--- NOTE | 2024-12-02 17:01 | DVHPN2 ---
Subjective Chest pain is improving. Shortness of breadth is improving. Reviewed: H&P Changes from previous H/P or p: No Changes General: Per HPI Eyes: No Pain, No Vision change, No Conjunctivae inflammation, No Eyelid inflammation, No Other, No Redness ENT: No Ear pain, No Ear discharge, No Nose pain, No Nose discharge, No Nose congestion, No Mouth pain, No Mouth swelling, No Throat pain, No Throat swelling, No Other Cardiovascular: Chest Pain; No Palpitations, No Orthopnea, No Paroxysmal Noc. Dyspnea, No Edema, No Lt Headedness, No Other Respiratory: No Cough, No Dry; Shortness of breath, SOB with excertion; No Wheezing, No Hemoptysis, No Pleuritic Pain, No Sputum; Other (Orthopnea, SOB at rest.) Gastrointestinal: No Nausea, No Vomiting, No Abdominal Pain, No Diarrhea, No Constipation, No Melena, No Hematochezia, No Other Genitourinary: No Dysuria, No Frequency, No Incontinence, No Hematuria, No Retention; Other (On hemodialysis) Musculoskeletal: No other, No neck pain, No shoulder pain, No arm pain, No back pain, No hand pain, No leg pain, No foot pain Skin: No Rash, No Lesions, No Jaundice, No Bruising, No Other Objective Vitals Vital Signs Date Time Temp Pulse Resp B/P (MAP) Pulse Ox O2 Delivery O2 Flow Rate FiO2 12/02/24 13:00 97.6 82 20 123/78 (93) 99 97.6 12/02/24 09:37 Nasal Cannula* 2 28 Exam GEN: Healthy appearing, well-developed, NAD. Morbid obesity concerning HEENT: NC/AT; MMM. CV: RRR, no m/r/g. Good palpable thrill on left forearm fistula for HD. LUNGS: Some lower lobe rales bilaterally. ABD: Soft, NT/ND, NBS, no masses or organomegaly. EXT: skin Warm, well perfused. no rashes. No clubbing, cyanosis, or edema. No pitting edema found on legs bilateral NEURO: Ambulating with no limitations. No focal deficits. Medications Current Medications Medications Dose Ordered Sig/Sravanthi Route Start Time Stop Time Status Last Admin Dose Admin Famotidine 20 mg DAILY IV 12/02/24 10:00 12/02/24 10:25 20 MG Carvedilol 25 mg Q12HR PO 12/02/24 10:00 12/02/24 10:25 25 MG Clonidine HCl 0.2 mg Q6HP PRN PO 12/02/24 05:30 Aspirin 81 mg DAILY PO 12/02/24 10:00 12/02/24 10:25 81 MG Multivit/Ca Carb/ B Cmplx/FA/Prenat 1 tab DAILY PO 12/02/24 10:00 12/02/24 10:24 1 TAB Sevelamer HCl 800 mg TIDWM PO 12/02/24 08:00 12/02/24 12:03 800 MG Calcium Acetate 667 mg TIDWMEALS PO 12/02/24 08:00 12/02/24 12:03 667 MG Sodium Chloride 10 ml Q8HR IV 12/02/24 06:00 12/02/24 12:10 10 ML Acetaminophen/ Hydrocodone Bitart 1 tab Q4HP PRN PO 12/02/24 05:30 12/02/24 10:24 1 TAB Ondansetron HCl 4 mg Q4HP PRN IV 12/02/24 05:30 Docusate Sodium 100 mg BIDPRN PRN PO 12/02/24 05:30 12/02/24 12:07 100 MG Acetaminophen 650 mg Q6HP PRN PO 12/02/24 05:30 12/02/24 08:13 650 MG Nitroglycerin 0.4 mg Q5MINP PRN SL 12/02/24 06:15 Morphine Sulfate 2 mg Q30M PRN IV 12/02/24 06:15 Laboratory Results Laboratory Tests 12/02/24 06:09 Chemistry Test 12/02/24 03:05 12/02/24 06:09 Calcium Level 8.7 mg/dL (8.7-10.4) 9.3 mg/dL (8.7-10.4) Albumin 4.0 g/dL (3.2-4.8) Total Protein 7.4 g/dL (5.7-8.2) Cardiac Markers Test 12/02/24 03:05 B-Type Natriuretic Peptide 144.39 pg/mL (0-100) LFT Test 12/02/24 06:09 Alanine Aminotransferase (ALT) 11 U/L (7-40) Alkaline Phosphatase 54 U/L (46-116) Aspartate Amino Transferase (AST) 11 U/L (13-40) L Total Bilirubin 0.2 mg/dL (0.2-1.0) Labs and/or images reviewed: Labs reviewed by me, Image(s) reviewed by me Assessment/Plan Assessment/Plan 12/02 patient here with chest pain and has history of CAD. No history of CHF. Patient's primary fusing machine tender has evaluated patient. Cardiology consulted. Primary fusing machine tender recommends outpatient follow up. Troponins negative. Recommendation for echo. Echo ordered we will be reviewed tomorrow. HD done today, patient does home HD. Patient has been having worsening shortness of breath, orthopnea, PND. It is possible patient's home HD is insufficient. Defer ongoing eval for home HD to primary barker operator. Patient's pain is described as sharp left chest wall, unrelated to food, nonpositional. patient's CP was initially pleuritic and tender to palpation. This is likely musculoskeletal pain. Patient hypertensive, with HD patient's hypertension is improving, shortness of breath is improving. Acute hypoxic respiratory failure due to below Volume overload, likely due to insufficient hemodialysis ESRD, dependent on hemodialysis Chest pain, likely musculoskeletal ACS ruled out Hypertensive urgency Electrolyte imbalance -nephrology consulted for HD, appreciate -cardiology consult, reviewed recommendations -continue home meds: Aspirin 81, B complex folic acid tablet, calcium acetate, Coreg 25 b.i.d., several number 800 t.i.d., -GI prophylaxis famotidine 20 IV daily -trial of methocarbamol x1 Cardiac renal diet DVT prophylaxis SCDs GI prophylaxis tolerating diet Tele Full code Plan discussed with: Patient My Orders Orders - CLAIRE NUÑEZ MD Procedure Category Date Status Time Echo 2d Mode Cardiac US 12/02/24 Logged DOP 14:17 * Cardiology Consult CONS 12/02/24 Transmitted 14:38 Date of Service: Dec 02, 2024 Billing Provider: CLAIRE NUÑEZ MD Common Visit Codes: [id number] INP/OBS CARE(HIGH) CLAIRE NUÑEZ MD Dec 02, 2024 17:01
[2024-12-02] MEDS: METHOCARBAMOL 500 MG TAB PO ONE (17:37)
[2024-12-03] VITALS (8 sets, daily range): BP systolic 152–170; BP diastolic 101–121; PULSE 91–110; RESP 16–18; TEMP 36.2; O2SAT 94–99
[2024-12-03 06:07] LABS: Hematocrit 29.0 % (41.0-53.0); Hemoglobin 9.5 g/dL (13.5-17.5); Mean Corpuscular Hemoglobin 26.8 pg (28.0-32.0); Mean Corpuscular Volume 81.6 fL (80.0-100.0); Nucleated Red Blood Cells % 0.0 %
[2024-12-03 06:30] LABS: Alanine Aminotransferase 11 U/L (7-40); Alkaline Phosphatase 48 U/L (46-116); Anion Gap 12 (5-15); BUN/Creatinine Ratio 1.9 (10.0-20.0); Blood Urea Nitrogen 21 mg/dL (9-23); Calcium 9.6 mg/dL (8.7-10.4); Carbon Dioxide 29 mmol/L (20-31); Glucose 78 mg/dL (74-106); Potassium 4.1 mmol/L (3.5-5.1); Sodium 137 mmol/L (136-145); Total Protein 7.4 g/dL (5.7-8.2)
[2024-12-03 06:31] LABS: Albumin 3.9 g/dL (3.2-4.8)
[2024-12-03 06:42] LABS: Bilirubin, Total < 0.2 mg/dL (0.2-1.0); Chloride 96 mmol/L (98-107)
--- NOTE | 2024-12-03 13:03 | DVHSR ---
APPROVED REPORT EXAM: Two-dimensional and M-mode echocardiogram with Doppler and color Doppler. Blood Pressure: 158/72 mmHg INDICATION Chest Pain RISK FACTORS Height: 70, Weight: 321 DIMENSIONS LVDd4.7 (3.8-5.7cm)LA (2D)5.6 (1.9-4.0cm)Aortic Root3.9 (2.0-3.7cm) LVDs3.4 (2.5-4.0cm)LA (MM) (1.9-4.0cm)Aortic Cusp Exc2.3 (1.5-2.0cm) EF (%) 55.0 (55-70%)Rt. Atrium5.2 (1.9-4.0cm)Asc. Aorta cm Mitral Valve MitralMitral Stenosis E wave1.05m/sMV Mean GR.mmHg A wave1.48m/sMV Peak GR.mmHg E/A ratio0.72D MVAcm2 DECEL [id number] 1/2 Timems Aortic Valve Aortic ValveAortic Stenosis V11.30m/Parth Mean GR.7mmHg V21.75m/Parth Peak GR.12mmHg LVOT Diameter2.6 (1.8-2.4cm)Doppler AVA3.94cm2 Pulmonic Valve V21.35m/s Conclusion lvef 65% moderate t osevere LVH grade 1 diastolic dysfunction normal rv function left atrium enlarged mild no severe valve abnormalities noted
[2024-12-03] MEDS: SODIUM CHL 0.9% 1000 ML BAG XX ONE (14:37)
--- NOTE | 2024-12-03 15:35 | DVHPN2 ---
Progress Note Date Seen: Dec 03, 2024 Medical Necessity Reason Pt with a Central, PICC or Fol: No Subjective Patient reports: No new complaints, Feels better Review of Systems: HEENT:Normal, CVS:Normal, RESPIRATORY:Normal, GI:Normal, :Normal, MSK:Normal, NEURO:Normal Objective vital signs Vital Sign Date Time Temp Pulse Resp B/P (MAP) Pulse Ox O2 Delivery O2 Flow Rate FiO2 12/03/24 14:59 163/115 12/03/24 13:00 98.0 100 17 96 98.0 12/03/24 07:51 Room Air* 0 21 Total Intake and Output 12/02/24 12/02/24 12/03/24 15:00 23:00 07:00 Intake Total 850 ml 600 ml Output Total 600 ml Balance 250 ml 600 ml medications Current Medications Medications Dose Ordered Sig/Sravanthi Route Start Time Stop Time Status Last Admin Dose Admin Famotidine 20 mg DAILY IV 12/02/24 10:00 12/03/24 08:10 20 MG Carvedilol 25 mg Q12HR PO 12/02/24 10:00 12/03/24 08:14 25 MG Clonidine HCl 0.2 mg Q6HP PRN PO 12/02/24 05:30 12/03/24 05:38 0.2 MG Aspirin 81 mg DAILY PO 12/02/24 10:00 12/03/24 08:11 81 MG Multivit/Ca Carb/ B Cmplx/FA/Prenat 1 tab DAILY PO 12/02/24 10:00 12/03/24 08:11 1 TAB Sevelamer HCl 800 mg TIDWM PO 12/02/24 08:00 12/03/24 12:17 800 MG Calcium Acetate 667 mg TIDWMEALS PO 12/02/24 08:00 12/03/24 12:17 667 MG Sodium Chloride 10 ml Q8HR IV 12/02/24 06:00 12/03/24 09:15 10 ML Acetaminophen/ Hydrocodone Bitart 1 tab Q4HP PRN PO 12/02/24 05:30 12/02/24 23:56 1 TAB Ondansetron HCl 4 mg Q4HP PRN IV 12/02/24 05:30 Docusate Sodium 100 mg BIDPRN PRN PO 12/02/24 05:30 12/02/24 12:07 100 MG Acetaminophen 650 mg Q6HP PRN PO 12/02/24 05:30 12/02/24 08:13 650 MG Nitroglycerin 0.4 mg Q5MINP PRN SL 12/02/24 06:15 Morphine Sulfate 2 mg Q30M PRN IV 12/02/24 06:15 Hydralazine HCl 100 mg Q8HR PO 12/03/24 14:00 12/03/24 14:59 100 MG laboratory and microbiology Laboratory Tests 12/03/24 05:21 Test 12/03/24 05:21 Range/Units Serum Glucose 78 74-106 mg/dL Problem List/Assessment/Plan Problem List/Assessment/Plan 1) ESRD on home hemodialysis 2) chest pain 3) status post failed kidney transplant 4) anemia 5) obesity 6> hypertensive urgency Recommendations Add nifedipine 60 mg Last dialysis was yesterday If patient is still here dialysis will be tomorrow Plan discussed with: Patient My Orders My Orders Orders - RUBEN OCONNELL MD Procedure Category Date Status Time Nifedipine Er PHA 12/04/24 Verified (Procardia Xl 10:00 Nifedipine Er PHA 12/03/24 Verified (Procardia Xl 15:45 RUBEN OCONNELL MD Dec 03, 2024 15:35
[2024-12-03] MEDS ORDERED: LOS25T PO (18:21)
[2024-12-03] MEDS ORDERED: NIFE1TAB30 PO (18:21)
[2024-12-03] MEDS ORDERED: HYDR50TA47 PO (18:25)
[2024-12-03] MEDS ORDERED: CARV25TA55 PO (18:25)
--- NOTE | 2024-12-03 18:31 | DVHDS2 ---
Discharge Summary Date of Admission Dec 02, 2024 at 06:09 Date of Discharge: Dec 03, 2024 Labs/Diagnostic Data: Laboratory Results Test 12/03/24 05:21 12/02/24 06:09 12/02/24 03:05 White Blood Count 7.8 10^3/uL (4.4-10.8) Red Blood Count 3.56 10^6/uL (4.5-5.90) Hemoglobin 9.5 g/dL (13.5-17.5) Hematocrit 29.0 % (41.0-53.0) Mean Corpuscular Volume 81.6 fL (80.0-100.0) Mean Corpuscular Hemoglobin 26.8 pg (28.0-32.0) Mean Corpuscular Hemoglobin Concent 32.9 g/dL (32.0-36.0) Red Cell Distribution Width 16.0 % (11.8-14.3) Platelet Count 184 10^3/uL (140-450) Mean Platelet Volume 6.7 fL (6.9-10.8) Neutrophils (%) (Auto) 55.6 % (37.0-80.0) Lymphocytes (%) (Auto) 24.0 % (10.0-50.0) Monocytes (%) (Auto) 16.1 % (0.0-12.0) Eosinophils (%) (Auto) 4.0 % (0.0-7.0) Basophils (%) (Auto) 0.3 % (0.0-2.0) Neutrophils # (Auto) 4.3 10 ^3/uL (1.6-8.6) Lymphocytes # (Auto) 1.9 10 ^3/uL (0.4-5.4) Monocytes # (Auto) 1.2 10 ^3/uL (0-1.3) Eosinophils # (Auto) 0.3 10 ^3/uL (0-0.8) Basophils # (Auto) 0 10 ^3/uL (0-0.2) Nucleated Red Blood Cells 0.0 % Sodium Level 137 mmol/L (136-145) Potassium Level 4.1 mmol/L (3.5-5.1) Chloride Level 96 mmol/L (98-107) Carbon Dioxide Level 29 mmol/L (20-31) Anion Gap 12 (5-15) Blood Urea Nitrogen 21 mg/dL (9-23) Creatinine 11.18 mg/dL (0.700-1.30) Glomerular Filtration Rate Calc 6 mL/min (>90) BUN/Creatinine Ratio 1.9 (10.0-20.0) Serum Glucose 78 mg/dL (74-106) Calcium Level 9.6 mg/dL (8.7-10.4) Total Bilirubin < 0.2 mg/dL (0.2-1.0) Aspartate Amino Transferase (AST) 11 U/L (13-40) Alanine Aminotransferase (ALT) 11 U/L (7-40) Alkaline Phosphatase 48 U/L (46-116) Total Protein 7.4 g/dL (5.7-8.2) Albumin 3.9 g/dL (3.2-4.8) Troponin I High Sensitivity 21 ng/L (</=54) B-Type Natriuretic Peptide 144.39 pg/mL (0-100) Other Laboratory Tests 12/03/24 05:21 Brief Hx & Hospital Course: 12/02 patient here with chest pain and has history of CAD. No history of CHF. Patient's primary electric organ assembler has evaluated patient. Cardiology consulted. Primary electric organ assembler recommends outpatient follow up. Troponins negative. Recommendation for echo. Echo ordered we will be reviewed tomorrow. HD done today, patient does home HD. Patient has been having worsening shortness of breath, orthopnea, PND. It is possible patient's home HD is insufficient. Defer ongoing eval for home HD to primary needle loom tender. Patient's pain is described as sharp left chest wall, unrelated to food, nonpositional. patient's CP was initially pleuritic and tender to palpation. This is likely musculoskeletal pain. Patient hypertensive, with HD patient's hypertension is improving, shortness of breath is improving. 12/03- patient weaned off oxygen after dialysis. Echo was done showing EF 65%, moderate to severe LVH, grade 1 diastolic dysfunction, normal RV, left atrium mildly enlarged, no other severe valvular abnormalities. Hypertension elevated likely due to ESRD and poorly optimized home blood pressure medications. Blood pressure is stabilizing. Patient vital signs stable. Patient is can continue dialysis as per primary needle loom tender recommendations. Stable for discharge as per plan below. Discharge diagnosis: Acute hypoxic respiratory failure due to below Volume overload, likely due to insufficient hemodialysis ESRD, dependent on hemodialysis Chest pain, likely musculoskeletal ACS ruled out Hypertensive urgency Electrolyte imbalance Discharge plan: - Start losartan 25 daily, nifedipine 60 daily Continue other home medications not mentioned above (calcitriol, cinacalcet 30 mg, clonidine 0.2 mg twice daily as needed, hydralazine 50 mg as needed, minoxidil 2.5 mg 2 times daily, omeprazole 40 mg daily ) - recommend against using ibuprofen or any other NSAIDs as this can cause GI bleed in dialysis patient; - change Coreg 25 mg twice daily, hydralazine 100 mg 3 times daily, losartan changed to 25 mg daily - stopped taking diltiazem 300 mg, ibuprofen - Continue renal diet, fluid intake < 2 L per day. - Resume normal activity, focus on weight loss with diet and exercise. - continue dialysis as primary needle loom tender recommends. - Urgent/close follow up with primary needle loom tender - Close follow up with PCP to review discharge. PCP to review med rec as above. Condition at Discharge: Fair Final Diagnosis/Problems List Discharge diagnosis: Acute hypoxic respiratory failure due to below Volume overload, likely due to insufficient hemodialysis ESRD, dependent on hemodialysis Chest pain, likely musculoskeletal ACS ruled out Hypertensive urgency Electrolyte imbalance Discharge Disposition: Home Discharge Instruct/Medications Diet: Renal Diet comment: See below Activity: No Restrictions, As Tolerated Follow Up/Referral: See below Medications: See below Scheduled Calcitriol (Calcitriol), 0.25 MCG PO DAILY, (Reported) Carvedilol (Carvedilol), 25 MG PO BID Cinacalcet Hydrochloride (Sensipar), 30 MG PO DAILY, (Reported) Clonidine Hydrochloride (Clonidine Hcl), 1 TAB PO BID, (Reported) Hydralazine Hcl (Hydralazine Hcl), 100 MG PO TID Losartan Potassium (Losartan Potassium), 25 MG PO DAILY Minoxidil (Loniten), 1 TAB PO BID, (Reported) Nifedipine (Nifedipine Er), 1 TAB PO DAILY Omeprazole (Gnp Omeprazole), 40 MG PO DAILY, (Reported) Discontinued Medications Diltiazem Hcl (Diltiazem Hcl Er), 300 MG PO DAILY, (Reported) Ibuprofen (Ibuprofen), 1 TAB PO TID Losartan Potassium (Losartan Potassium), 1 TAB PO QPM, (Reported) Discharge Statement: "Patient was advised to return to the ER or call 911 if any headaches, dizziness, shortness of breath, chest pain, abdominal pain, bleeding, fevers, or worsening of medical condition. Patient was counseled about treatment plan, medications, possible side effects, patientverbalized understanding. All questions were answered to the best of my ability. This discharge took greater then 30 minutes in planning, reviewing documentation, counseling the patient, and discussing with other team members." Date of Service: Dec 03, 2024 Billing Provider: CLAIRE NUÑEZ MD Common Visit Codes: 98638-DZV/OBS DISCH DAY >30min CLAIRE NUÑEZ MD Dec 03, 2024 18:31
== END 2024-12-03 19:09 | disposition home or self-care (01) | DRG 640 ==
LOC: EDBD 02:55 → ER 02:55 → OVERFLOW 06:09 → TELE-WESTW 09:43
PROVIDERS: ADMIT Student in an Organized Health Care Education/Training Program; ATTEND Student in an Organized Health Care Education/Training Program
PROC: 5A1D70Z Performance of Urinary Filtration, Intermittent, Less than 6 Hours Per Day (ICD-10-PCS; principal; 2024-12-02)
DX: E87.70 Fluid overload, unspecified (principal); J96.01 Acute respiratory failure with hypoxia; N18.6 End stage renal disease; T86.12 Kidney transplant failure; Z68.41 Body mass index [BMI] 40.0-44.9, adult; I13.11 Hypertensive heart and chronic kidney disease without heart failure, with stage 5 chronic kidney disease, or end stage renal disease; I25.10 Atherosclerotic heart disease of native coronary artery without angina pectoris; I16.0 Hypertensive urgency; I48.91 Unspecified atrial fibrillation; D64.9 Anemia, unspecified; E66.9 Obesity, unspecified; E87.8 Other disorders of electrolyte and fluid balance, not elsewhere classified; E78.5 Hyperlipidemia, unspecified; Z79.1 Long term (current) use of non-steroidal anti-inflammatories (NSAID); Z79.899 Other long term (current) drug therapy; Z82.49 Family history of ischemic heart disease and other diseases of the circulatory system; Z99.2 Dependence on renal dialysis; R07.89 Other chest pain
CPT/HCPCS: 36415; 71045; 80048; 80053; 83880; 84484; 85025; 87081; 90935; 93005; 93306; 96374; 96375; 99291; G0378; J2405; J3490

== ENCOUNTER 2025-05-15 07:46 | Inpatient (IN) | payer MEDICARE, MEDICAID ==
[2025-05-15] VITALS (8 sets, daily range): BP systolic 114–140; BP diastolic 70–91; PULSE 92–100; RESP 16–22; TEMP 97.8–98.4; O2SAT 95–100
[~2025-05-15] VITALS: Ht 180.3 cm; Wt 127.1 kg
[~2025-05-15 07:46] MED LIST changes: -IBUP-1456 PO; +LOS25T PO; -LOSA-535 PO; +NIFE1TAB30 PO; -[UNRECOGNIZED DRUG - CODE] PO
[2025-05-15 08:48] LABS: Hematocrit 32.6 % (41.0-53.0); Hemoglobin 10.7 g/dL (13.5-17.5); Mean Corpuscular Hemoglobin 27.0 pg (28.0-32.0); Mean Corpuscular Volume 82.3 fL (80.0-100.0); Nucleated Red Blood Cells % 0.0 %
--- NOTE | 2025-05-15 08:48 | ED.PDOC ---
HPI Comments 34M with PMHx of CKD on dialysis and HTN presents to the ED via EMS for chief complaint of chest pain. Pt states he has been having chest pain since 15:30 yesterday. Pt called EMS due to exacerbation of symptoms earlier this morning, EMS arrived on scene and administered 324 aspirin and denied nitroglycerin and brought to the ED for further evaluation. Pt in the ED states the pain is located on the left side of the chest, radiating to the jaw, describing it as "something is lodged in throat," noted exacerbation of pain while eating food and drinking water, and no relieving factors. Pt denies associated symptoms of shortness of breath, diaphoresis, fever, and headache. Pt denies any other symptoms at this time. Chief Complaint: Chest Pain Time Seen by MD: 08:42 Primary Care Provider: SHENA Allergies: Coded Allergies: Morphine (Verified Allergy, Unknown, 05/15/25) Home Meds Active Scripts Hydralazine Hcl (Hydralazine Hcl) 50 Mg Tab, 100 MG PO TID for 30 Days, MG Prov:CLAIRE NUÑEZ MD 12/03/24 Carvedilol (Carvedilol) 25 Mg Tab, 25 MG PO BID for 30 Days, MG Prov:CLAIRE NUÑEZ MD 12/03/24 Losartan Potassium (Losartan Potassium) 25 Mg Tab, 25 MG PO DAILY for 30 Days, #30 TAB 0 Refills Prov:CLAIRE NUÑEZ MD 12/03/24 Nifedipine (Nifedipine Er) 60 Mg Tab, 1 TAB PO DAILY, #30 TAB 0 Refills Prov:CLAIRE NUÑEZ MD 12/03/24 Reported Medications Calcitriol (Calcitriol) 0.25 Mcg Cap, 0.25 MCG PO DAILY for 30 Days, MCG 11/13/18 Minoxidil (Loniten) 2.5 Mg Tb, 1 TAB PO BID, #180 TAB 1 Refill 11/09/17 Cinacalcet Hydrochloride (Sensipar) 30 Mg Tab, 30 MG PO DAILY, TAB 11/09/17 Omeprazole (Gnp Omeprazole) 20 Mg Tab, 40 MG PO DAILY, TAB 11/09/17 Clonidine Hydrochloride (Clonidine Hcl) 0.2 Mg Tab, 1 TAB PO BID, #60 TAB 5 Refills 08/12/16 Information Source: Patient, Emergency Med Personnel Mode of Arrival: EMS Past Medical History PAST MEDICAL HISTORY: AFIB, CHF, ESRD, High Lipids, HTN, Thyroid Family History Family History: Reviewed,noncontributory to illness Social History Smoker: Non-Smoker Alcohol: Denies ETOH Use Drugs: Denies Drug Use Lives In: Home Constitutional: denies: chills, diaphoresis, fatigue, fever, malaise, sweats, weakness, others EENTM: denies: blurred vision, double vision, ear bleeding, ear discharge, ear drainage, ear pain, ear ringing, eye pain, eye redness, hearing loss, mouth pain, mouth swelling, nasal discharge, nose bleeding, nose congestion, nose pain, photophobia, tearing, throat pain, throat swelling, voice changes, others Respiratory: denies: cough, hemoptysis, orthopnea, SOB at rest, shortness of breath, SOB with excertion, stridor, wheezing, others Cardiovascular: reports: chest pain Gastrointestinal: denies: abdomen distended, abdominal pain, blood streaked bowels, constipated, diarrhea, dysphagia, difficulty swallowing, hematemesis, melena, nausea, poor appetite, poor fluid intake, rectal bleeding, rectal pain, vomiting, others Genitourinary: denies: burning, dysuria, flank pain, frequency, hematuria, incontinence, penile discharge, penile sore, pain, testicle pain, testicle swelling, urgency, others Neurological: denies: dizziness, fainting, headache, left sided numbness, left sided weakness, numbness, paresthesia, pre-existing deficit, right sided numbness, right sided weakness, seizure, speech problems, tingling, tremors, weakness, others Musculoskeletal: denies: back pain, gout, joint pain, joint swelling, muscle pain, muscle stiffness, neck pain, others Integumetry: denies: bruises, change in color, change in hair/nails, dryness, laceration, lesions, lumps, rash, wounds, others Allergic/Immunocompromised: denies: Difficulty Healing, Frequent Infections, Hives, Itching, others Hematologic/Lymphatic: denies: anemia, blood clots, easy bleeding, easy bruising, swollen glands, others Endocrine: denies: excessive hunger, excessive sweating, excessive thirst, excessive urination, flushing, intolerance to cold, intolerance to heat, unexp lained weight gain, unexplained weight loss, others Psychiatric: denies: anxiety, bipolar disorder, depression, hopeless, panic disorder, schizophrenia, sleepless, suicidal, others All Other Systems: Reviewed and Negative Physical Exam General Appearance: No Apparent Distress, Normal HEENT: Normal ENT Inspection, Pharynx Normal, TMs Normal Neck: Full Range of Motion, Non-Tender, Normal, Normal Inspection Breast Exam: Deferred Gastrointestinal: No Organomegaly, Non Tender, No Pulsatile Mass, Normal Bowel Sounds, Soft Genitalia: Deferred Pelvic: Deferred Rectal: Deferred Extremities: No calf tenderness, Normal capillary refill, Normal inspection, Normal range of motion, Non-tender, No pedal edema Neurologic: Alert, key bed installer II-XII nml as Tested, No Motor Deficits, Normal Affect, Normal Mood, No Sensory Deficits Cerebellar Function: Normal Reflexes: Normal Skin: Dry, Normal Color, Warm Lymphatic: No Adenopathy EKG EKG : Pulse Rate (adult): 100 [place]: Normal Cardiac Rhythm: ST Block: None Hypertrophy: None ST: Normal Was a procedure done? Was a procedure done?: No X-Ray, Labs, Meds, VS Vital Signs Date Time Temp Pulse Resp B/P (MAP) Pulse Ox O2 Delivery O2 Flow Rate FiO2 05/15/25 09:18 97.7 94 18 119/79 (92) 100 97.7 05/15/25 08:48 100 05/15/25 08:39 95 05/15/25 08:15 97.9 98 22 126/78 (94) 99 97.9 05/15/25 08:15 98 22 99 Room Air* 0 21 05/15/25 07:50 97.7 103 18 127/81 98 97.7 05/15/25 07:50 100 Lab Test 05/15/25 09:25 05/15/25 08:29 Range/Units Troponin I High Sensitivity Pending 14 </=54 ng/L White Blood Count 7.3 4.4-10.8 10^3/uL Red Blood Count 3.96 L 4.5-5.90 10^6/uL Hemoglobin 10.7 L 13.5-17.5 g/dL Hematocrit 32.6 L 41.0-53.0 % Mean Corpuscular Volume 82.3 80.0-100.0 fL Mean Corpuscular Hemoglobin 27.0 L 28.0-32.0 pg Mean Corpuscular Hemoglobin Concent 32.8 32.0-36.0 g/dL Red Cell Distribution Width 16.6 H 11.8-14.3 % Platelet Count 223 140-450 10^3/uL Mean Platelet Volume 7.0 6.9-10.8 fL Neutrophils (%) (Auto) 63.8 37.0-80.0 % Lymphocytes (%) (Auto) 17.2 10.0-50.0 % Monocytes (%) (Auto) 15.7 H 0.0-12.0 % Eosinophils (%) (Auto) 2.8 0.0-7.0 % Basophils (%) (Auto) 0.5 0.0-2.0 % Neutrophils # (Auto) 4.6 1.6-8.6 10 ^3/uL Lymphocytes # (Auto) 1.3 0.4-5.4 10 ^3/uL Monocytes # (Auto) 1.1 0-1.3 10 ^3/uL Eosinophils # (Auto) 0.2 0-0.8 10 ^3/uL Basophils # (Auto) 0 0-0.2 10 ^3/uL Nucleated Red Blood Cells 0.0 % Sodium Level 136 136-145 mmol/L Potassium Level 4.1 3.5-5.1 mmol/L Chloride Level 94 L 98-107 mmol/L Carbon Dioxide Level 28 20-31 mmol/L Anion Gap 14 5-15 Blood Urea Nitrogen 32 H 9-23 mg/dL Creatinine 13.04 *H 0.700-1.30 mg/dL Glomerular Filtration Rate Calc 5 >90 mL/min BUN/Creatinine Ratio 2.5 L 10.0-20.0 Serum Glucose 80 74-106 mg/dL Calcium Level 8.9 8.7-10.4 mg/dL Current Medications Medications (Trade) Dose Ordered Sig/Sravanthi Route Start Time Stop Time Status Last Admin Acetaminophen/ Hydrocodone Bitart ([place] 10/325MG Tab) 1 tab ONCE ONCE PO 05/15/25 09:00 05/15/25 09:01 DC 05/15/25 09:[address] [address] Ph: [phone] DIAGNOSTIC IMAGING Diagnostic Imaging Report : [id number] Signed PATIENT: CRISS RODRIGUES ACCT: [id number] UNIT: [id number] : 1990 LOC: ER ROOM / BED: / AGE / SEX: 34 / M ADM STATUS: REG ER SERVICE 6 ORDERING PHYSICIAN: RICKY LYONS MD PROCEDURE(s): CXRP - CHEST PORTABLE REASON: cp ORDER NUMBER(s): [id number], ACCESSION NUMBER(s): [id number] CHEST RADIOGRAPH Indication: cp Technique: Single frontal view of the chest was obtained COMPARISON: XY CHEST PORTABLE on DOS: 12/02/24 FINDINGS: Lines and Tubes: None Lungs: Increased interstital prominence. This may represent pulmonary vascular congestion and/or viral pneumonia. Pleura: No effusion.No pneumothorax. Cardiomediastinal contours: Unremarkable Bones: Unremarkable IMPRESSION: Increased interstital prominence. This may represent pulmonary vascular congestion and/or viral pneumonia. ATED BY: DONNIE OLIVER MD DICTATED DATE/TIME: 05/15/25848 SIGNED BY: DONNIE OLIVER MD SIGNED DATE/TIME: 05/15/25848 CC: Time of 1ST Reevaluation: 09:22 Patient Education/Counseling: Diagnosis, Treatment Family Education/Counseling: No Family Present SEPSIS Sepsis Screen Date sepsis recognized/suspect: May 15, 2025 Time Sepsis recognized/suspect: 749 Recent Procedure: No On Antibiotic Therapy: No Respiratory Rate >20: No Heart Rate >90: Yes Temp<36 C (96.8 F) or >38.3 C: No SBP <90 or MAP <65 mmHG: No New Acute Mental Status Change: No Is the patient on CPAP, BIPAP,: No Physician Orders Urinalysis (05/15/25 07:57) Chest Portable (05/15/25 07:57) Electrocardigram (05/15/25 07:57) Troponin-I Hs (05/15/25 08:57) Troponin-I Hs (05/15/25 10:57) Electrocardigram (05/15/25 08:57) Electrocardigram (05/15/25 10:57) Vital Signs Date Time Temp Pulse Resp B/P (MAP) Pulse Ox O2 Delivery O2 Flow Rate FiO2 05/15/25 09:18 97.7 94 18 119/79 (92) 100 97.7 05/15/25 08:48 100 05/15/25 08:39 95 05/15/25 08:15 97.9 98 22 126/78 (94) 99 97.9 05/15/25 08:15 98 22 99 Room Air* 0 21 05/15/25 07:50 97.7 103 18 127/81 98 97.7 05/15/25 07:50 100 Laboratory Tests Test 05/15/25 08:29 White Blood Count 7.3 10^3/uL (4.4-10.8) Medications Medications Dose Ordered Sig/Sravanthi Route Start Time Stop Time Status Last Admin Dose Admin Acetaminophen/ Hydrocodone Bitart 1 tab ONCE ONCE PO 05/15/25 09:00 05/15/25 09:01 DC 05/15/25 09:43 Critical Care Note Critical Care Time?: No Stability Stability form required: No Heart Score Heart Score: Heart Score Response (Comments) Value History Moderate Suspicious 1 Age <45 0 Risk Factors No known risk factors 0 Total 1 I personally scribed for RICKY LYONS MD ([email or web address]) on 05/15/25 at 08:48. Electronically submitted by Yamini Redman ([email or web address]). I personally scribed for RICKY LYONS MD ([email or web address]) on 05/15/25 at 09:50. Electronically submitted by Ashleigh Patterson ([email or web address]). RICKY LYONS MD May 15, 2025 08:48
--- NOTE | 2025-05-15 08:51 | DVH ---
CHEST RADIOGRAPH Indication: cp Technique: Single frontal view of the chest was obtained COMPARISON: XY CHEST PORTABLE on DOS: 12/02/24 FINDINGS: Lines and Tubes: None Lungs: Increased interstital prominence. This may represent pulmonary vascular congestion and/or viral pneumonia. Pleura: No effusion.No pneumothorax. Cardiomediastinal contours: Unremarkable Bones: Unremarkable IMPRESSION: Increased interstital prominence. This may represent pulmonary vascular congestion and/or viral pneumonia.
[2025-05-15 08:56] LABS: Potassium 4.1 mmol/L (3.5-5.1); Sodium 136 mmol/L (136-145)
[2025-05-15 08:57] LABS: Anion Gap 14 (5-15); Carbon Dioxide 28 mmol/L (20-31)
[2025-05-15 08:58] LABS: Calcium 8.9 mg/dL (8.7-10.4)
[2025-05-15 09:01] LABS: Chloride 94 mmol/L (98-107)
[2025-05-15 09:02] LABS: BUN/Creatinine Ratio 2.5 (10.0-20.0); Glucose 80 mg/dL (74-106)
[2025-05-15 09:03] LABS: Blood Urea Nitrogen 32 mg/dL (9-23)
[2025-05-15] MEDS: HYDROcodone-ACET 10/325MG TAB PO ONE ×2 (09:43→21:22)
[2025-05-15] MEDS: ONDANSETRON HCL 4 MG/2 ML VIAL IV ONE (13:30)
[2025-05-15] MEDS: HYDROmorphone HCL 2 MG/ML VL/or syr IV ONE (13:31)
[2025-05-15] MEDS ORDERED: IPRATROPIUM BROM 0.5 MG/2.5ML INH SOL NEB PRN (13:45)
[2025-05-15] MEDS ORDERED: ALBUTEROL SULF 2.5 MG/0.5ML(0.5%) NEB SOLN NEB PRN (13:45)
[2025-05-15] MEDS ORDERED: ACETAMINOPHEN 500 MG TAB or CAP PO PRN (13:45)
[2025-05-15] MEDS ORDERED: ONDANSETRON HCL 4 MG/2 ML VIAL IV PRN (13:45)
[2025-05-15] MEDS ORDERED: HYDROcodone-ACET 5/325MG TAB PO PRN (13:45)
[2025-05-15] MEDS ORDERED: DOCUSATE SOD 100 MG CAP PO PRN (13:45)
--- NOTE | 2025-05-15 14:14 | DVHINCON2 ---
Date of service: May 15, 2025 Referring Physician Dorcas garcia Reason for Consultation ESRD History of Present Illness 34 year old male hx hypertension, former kidney transplant with graft failure returned to hemodialysis in 2023 now on home hemodialysis 4x per week presents with throat pain overnight which evolved into chest pain and didnt resolve his last dialysis was yesterday Past Surgical History DDRT transplant nephrectomy Allergies: Coded Allergies: Morphine (Verified Allergy, Unknown, 05/15/25) Home Meds Active Scripts Hydralazine Hcl (Hydralazine Hcl) 50 Mg Tab, 100 MG PO TID for 30 Days, MG Prov:CLAIRE NUÑEZ MD 12/03/24 Carvedilol (Carvedilol) 25 Mg Tab, 25 MG PO BID for 30 Days, MG Prov:CLAIRE NUÑEZ MD 12/03/24 Losartan Potassium (Losartan Potassium) 25 Mg Tab, 25 MG PO DAILY for 30 Days, #30 TAB 0 Refills Prov:CLAIRE NUÑEZ MD 12/03/24 Nifedipine (Nifedipine Er) 60 Mg Tab, 1 TAB PO DAILY, #30 TAB 0 Refills Prov:CLAIRE NUÑEZ MD 12/03/24 Reported Medications Calcitriol (Calcitriol) 0.25 Mcg Cap, 0.25 MCG PO DAILY for 30 Days, MCG 11/13/18 Minoxidil (Loniten) 2.5 Mg Tb, 1 TAB PO BID, #180 TAB 1 Refill 11/09/17 Cinacalcet Hydrochloride (Sensipar) 30 Mg Tab, 30 MG PO DAILY, TAB 11/09/17 Omeprazole (Gnp Omeprazole) 20 Mg Tab, 40 MG PO DAILY, TAB 11/09/17 Clonidine Hydrochloride (Clonidine Hcl) 0.2 Mg Tab, 1 TAB PO BID, #60 TAB 5 Refills 08/12/16 Current Medications Current Medications Medications (Trade) Dose Ordered Sig/Sravanthi Route PRN Reason Start Time Stop Time Status Last Admin Nitroglycerin (Ntrostat Sublingual) 0.4 mg Q5MINP PRN SL FOR CHEST PAIN 05/15/25 13:45 UNV Acetaminophen/ Hydrocodone Bitart ([place] 5/325MG Tab) 1 tab Q6HPRN PRN PO MODERATE PAIN (4-6 PAIN SCALE) 05/15/25 13:45 UNV Acetaminophen (Tylenol Tablet Or Capsule) 500 mg Q8HP PRN PO PAIN SCALE 1-3 OR TEMP>100.4 05/15/25 13:45 UNV Ondansetron HCl (Zofran) 4 mg Q6HP PRN IV NAUSEA / VOMITING 05/15/25 13:45 UNV Docusate Sodium (Colace Capsule) 100 mg BID PRN PO FOR CONSTIPATION 05/15/25 13:45 UNV Albuterol (Ventolin Medneb) 2.5 mg Q4HPRN PRN NEB SHORTNESS OF BREATH 05/15/25 13:45 UNV Ipratropium [place] (Atrovent Medneb) 0.5 mg Q4HPRN PRN NEB SHORTNESS OF BREATH 05/15/25 13:45 UNV Calcitriol (Rocaltrol Capsule) 0.25 mcg DAILY PO 05/16/25 10:00 UNV Cinacalcet (Sensipar) 30 mg DAILY PO 05/16/25 10:00 UNV Carvedilol (Coreg Tablet) 3.125 mg Q12HR PO 05/15/25 22:00 UNV Family History: Family history: Hypertension G8 MOTHER G8 FATHER GRANDPA AUNT Review of Systems left sided chest pain H&P Exam Vital Signs/I&O Vital Sign Date Time Temp Pulse Resp B/P (MAP) Pulse Ox O2 Delivery O2 Flow Rate FiO2 05/15/25 14:02 97.8 92 18 128/82 97 0.0 21 97.8 05/15/25 09:18 Room Air* Physical Exam overweight male mild distress reports chest pain better s/p IV Dilaudid rrr no murmur + left radiocephalic AVF no edema Labs/Diagnostic Data Labs/Diagnostic Data Laboratory Tests Test 05/15/25 11:11 05/15/25 09:25 05/15/25 08:29 Range/Units Troponin I High Sensitivity 13 11 14 </=54 ng/L White Blood Count 7.3 4.4-10.8 10^3/uL Red Blood Count 3.96 L 4.5-5.90 10^6/uL Hemoglobin 10.7 L 13.5-17.5 g/dL Hematocrit 32.6 L 41.0-53.0 % Mean Corpuscular Volume 82.3 80.0-100.0 fL Mean Corpuscular Hemoglobin 27.0 L 28.0-32.0 pg Mean Corpuscular Hemoglobin Concent 32.8 32.0-36.0 g/dL Red Cell Distribution Width 16.6 H 11.8-14.3 % Platelet Count 223 140-450 10^3/uL Mean Platelet Volume 7.0 6.9-10.8 fL Neutrophils (%) (Auto) 63.8 37.0-80.0 % Lymphocytes (%) (Auto) 17.2 10.0-50.0 % Monocytes (%) (Auto) 15.7 H 0.0-12.0 % Eosinophils (%) (Auto) 2.8 0.0-7.0 % Basophils (%) (Auto) 0.5 0.0-2.0 % Neutrophils # (Auto) 4.6 1.6-8.6 10 ^3/uL Lymphocytes # (Auto) 1.3 0.4-5.4 10 ^3/uL Monocytes # (Auto) 1.1 0-1.3 10 ^3/uL Eosinophils # (Auto) 0.2 0-0.8 10 ^3/uL Basophils # (Auto) 0 0-0.2 10 ^3/uL Nucleated Red Blood Cells 0.0 % Sodium Level 136 136-145 mmol/L Potassium Level 4.1 3.5-5.1 mmol/L Chloride Level 94 L 98-107 mmol/L Carbon Dioxide Level 28 20-31 mmol/L Anion Gap 14 5-15 Blood Urea Nitrogen 32 H 9-23 mg/dL Creatinine 13.04 *H 0.700-1.30 mg/dL Glomerular Filtration Rate Calc 5 >90 mL/min BUN/Creatinine Ratio 2.5 L 10.0-20.0 Serum Glucose 80 74-106 mg/dL Calcium Level 8.9 8.7-10.4 mg/dL Assessment ESRD HTN chest pain former renal transplant s/p transplant nephrectomy labs wnl no need for HD today will schedule HD tomorrow plan for CT for chest eval pending echo resume BP meds today trops neg low sodium renal diet Plan discussed with: Patient MARYANNE ELLIS MD May 15, 2025 14:14
--- NOTE | 2025-05-15 14:42 | DVH ---
EXAM: CT CHEST WITHOUT CONTRAST History: chest pain, rule out pulmonary etiology Comparison Study: XY CHEST PORTABLE on DOS: 05/15/25, XY CHEST PORTABLE on DOS: 12/02/24 TECHNIQUE: Multidetector CT of the chest was performed. Imaging was performed without IV contrast. Axial, coronal, and sagittal multiplanar reformats were obtained from the axial data set by the technologist. Radiation Dose : CTDI vol 22.5 mGy, DLP 864.3 mGy*cm. FINDINGS: Evaluation is degraded by respiratory motion. Lungs: There is minimal scattered atelectasis/ scarring. Pleura: Unremarkable Heart/Great vessels: The heart is borderline in size. There is no pericardial effusion. The aorta is unremarkable. Mediastinum: Unremarkable. Soft tissues/Bones: Dense appearance of the osseous structures. Upper abdomen: Prior cholecystectomy. Bilateral renal cortical atrophy. Right renal cysts, incompletely assessed. IMPRESSION: 1. No acute intrathoracic abnormality. 2. Incidental findings as detailed.
[2025-05-15 15:08] LABS: Hepatitis B Surface Antigen Negative (Negative)
[2025-05-15 15:21] LABS: Hepatitis C Antibody Negative (Negative)
--- NOTE | 2025-05-15 15:23 | DVH ---
CT pulmonary angiogram INDICATION: chest pain, rule out PE TECHNIQUE: Serial axial images were performed through the chest using 3 mm slice thickness and interval following the administration of 100 mL of Omnipaque 350 IV contrast. Multiplanar MIP reconstruction imaging was provided and reviewed at the workstation FINDINGS: No filling defects in the central branches of the pulmonary arteries is normal. Lung montano are normal. The heart size is slightly enlarged. There is no pericardial effusion. There are no enlarged axillary or hilar lymph nodes. There is soft tissue density in the superior anterior mediastinum most likely thymic remnant. Limited views of the upper abdomen show surgical clips in the gallbladder fossa. Images of the upper abdomen reveal no bony abnormalities IMPRESSION: No evidence of central pulmonary emboli or acute cardiopulmonary pathology Computed Tomographic Radiation Dosimetry Report: Total CTDI vol = 44 mGy Total DLP = 935 mGy-cm All CT scans at this medical facility are performed using dose modulation techniques as appropriate to a performed exam including the following: Automated exposure control was utilized; adjustment of the MA and/or KvP according to patient size; and use of iterative reconstruction technique.
--- NOTE | 2025-05-15 15:24 | DVHHP2 ---
History of Present Illness Reason for Visit: Chest pain History of Present Illness Patient has a 34-year-old male presenting to the emergency room after being transported by EMS with reports of chest pain. Patient states that his pain began yesterday afternoon approximately 330 p.m. Pain was localized substernal, somewhat in the left side today. With his initial discomfort beginning in his throat. Pain was assessed as a 10/10 at the time of admission. He denies having any radiation of the pain, nausea, diaphoresis, or near-syncope. Patient also denies having any fevers, chills, body aches. Significant history of the patient includes end-stage renal disease with a home hemodialysis. Patient also has had a kidney transplant also with same kidney having nephrectomy. Patient will be admitted for further workup of his chest pain. Patient did receive IV Dilaudid to alleviate his pain while in the emergency room. Other history includes primary hypertension,? Atrial fibrillation, in obesity with current treatment with Zepbound. Cardiovascular: HTN Heme/Onc: Anemia NOS Renal/: Chronic renal failure Past Surgical History: TURP (Kidney transplant, nephrectomy) Review of Systems Constitutional: No: Fever, Chills, Sweats, Weakness, Malaise, Other Eyes: No: Pain, Vision change, Conjunctivae inflammation, Eyelid inflammation, Other, Redness ENT: No: Ear pain, Ear discharge, Nose pain, Nose discharge, Nose congestion, Mouth pain, Mouth swelling, Throat pain, Throat swelling, Other Respiratory: No: Cough, Dry, Shortness of breath, SOB with excertion, Wheezing, Hemoptysis, Pleuritic Pain, Sputum, Wheezing, Other Cardiovascular: Chest Pain Gastrointestinal: No: Nausea, Vomiting, Abdominal Pain, Diarrhea, Constipation, Melena, Hematochezia, Other Genitourinary: No Dysuria, No Frequency, No Incontinence, No Hematuria, No Retention, No Other Musculoskeletal: No: other, neck pain, shoulder pain, arm pain, back pain, hand pain, leg pain, foot pain Skin: No: Rash, Lesions, Jaundice, Bruising, Other Neurological: No: Weakness, Numbness, Incoordination, Change in speech, Confusion, Seizures, Other Allergies: Coded Allergies: Morphine (Verified Allergy, Unknown, 05/15/25) Medications Current Medications Medications Dose Ordered Sig/Sravanthi Route Start Time Stop Time Status Last Admin Dose Admin Nitroglycerin 0.4 mg Q5MINP PRN SL 05/15/25 13:45 Acetaminophen/ Hydrocodone Bitart 1 tab Q6HPRN PRN PO 05/15/25 13:45 Hold Acetaminophen 500 mg Q8HP PRN PO 05/15/25 13:45 Ondansetron HCl 4 mg Q6HP PRN IV 05/15/25 13:45 Docusate Sodium 100 mg BID PRN PO 05/15/25 13:45 Albuterol 2.5 mg Q4HPRN PRN NEB 05/15/25 13:45 Ipratropium Smiley 0.5 mg Q4HPRN PRN NEB 05/15/25 13:45 Calcitriol 0.25 mcg DAILY PO 05/16/25 10:00 Cinacalcet 30 mg DAILY PO 05/16/25 10:00 Carvedilol 3.125 mg Q12HR PO 05/15/25 22:00 Exam Vital Signs Vital Signs Date Time Temp Pulse Resp B/P (MAP) Pulse Ox O2 Delivery O2 Flow Rate FiO2 05/15/25 14:02 97.8 92 18 128/82 97 0.0 21 97.8 05/15/25 09:18 Room Air* General Appearance: Alert, Oriented X3, Cooperative, mild distress HEENT: Atraumatic, PERRLA Cardiovascular: Regular rate, Normal S1, Normal S2 Abdominal: Normal bowel sounds, No tenderness, No hepatospenomegaly Neuro: Normal gait, Normal speech Psych/Mental Status: Mental status NL, Mood NL Labs/Xrays Labs Test 05/15/25 11:11 05/15/25 08:29 Range/Units Troponin I High Sensitivity 13 </=54 ng/L Hepatitis B Surface Antigen Negative Negative White Blood Count 7.3 4.4-10.8 10^3/uL Red Blood Count 3.96 L 4.5-5.90 10^6/uL Hemoglobin 10.7 L 13.5-17.5 g/dL Hematocrit 32.6 L 41.0-53.0 % Mean Corpuscular Volume 82.3 80.0-100.0 fL Mean Corpuscular Hemoglobin 27.0 L 28.0-32.0 pg Mean Corpuscular Hemoglobin Concent 32.8 32.0-36.0 g/dL Red Cell Distribution Width 16.6 H 11.8-14.3 % Platelet Count 223 140-450 10^3/uL Mean Platelet Volume 7.0 6.9-10.8 fL Neutrophils (%) (Auto) 63.8 37.0-80.0 % Lymphocytes (%) (Auto) 17.2 10.0-50.0 % Monocytes (%) (Auto) 15.7 H 0.0-12.0 % Eosinophils (%) (Auto) 2.8 0.0-7.0 % Basophils (%) (Auto) 0.5 0.0-2.0 % Neutrophils # (Auto) 4.6 1.6-8.6 10 ^3/uL Lymphocytes # (Auto) 1.3 0.4-5.4 10 ^3/uL Monocytes # (Auto) 1.1 0-1.3 10 ^3/uL Eosinophils # (Auto) 0.2 0-0.8 10 ^3/uL Basophils # (Auto) 0 0-0.2 10 ^3/uL Nucleated Red Blood Cells 0.0 % Erythrocyte Sedimentation Rate 50 H 0-20 mm/hr Sodium Level 136 136-145 mmol/L Potassium Level 4.1 3.5-5.1 mmol/L Chloride Level 94 L 98-107 mmol/L Carbon Dioxide Level 28 20-31 mmol/L Anion Gap 14 5-15 Blood Urea Nitrogen 32 H 9-23 mg/dL Creatinine 13.04 *H 0.700-1.30 mg/dL Glomerular Filtration Rate Calc 5 >90 mL/min BUN/Creatinine Ratio 2.5 L 10.0-20.0 Serum Glucose 80 74-106 mg/dL Calcium Level 8.9 8.7-10.4 mg/dL C-Reactive Protein High Sensitivity 1.38 H <1.0 mg/dL SEPSIS Sepsis Screen Date sepsis recognized/suspect: May 15, 2025 Time Sepsis recognized/suspect: 917 Recent Procedure: No On Antibiotic Therapy: No Respiratory Rate >20: No Heart Rate >90: No Temp<36 C (96.8 F) or >38.3 C: No SBP <90 or MAP <65 mmHG: No New Acute Mental Status Change: No Is the patient on CPAP, BIPAP,: No Physician Orders Urinalysis (05/15/25 07:57) Chest Portable (05/15/25 07:57) Electrocardigram (05/15/25 07:57) Electrocardigram (05/15/25 08:57) Electrocardigram (05/15/25 10:57) Admit (05/15/25 13:38) Nitroglycerin Sublingual (Ntrostat Subli (05/15/25 13:45) Stat Ekg For Chest Pain (05/15/25 13:38) Notify Md Of Changes From Base (05/15/25 13:38) Cardio Tech For 24 Hours (05/15/25 13:38) Emergency Dysrhythmia Protocol (05/15/25 13:38) Rhythm Strips Once Every Shift (05/15/25 13:38) Oxygen By Nasal Cannula (05/15/25 13:38) *[facility] (05/15/25 13:38) Echo 2d Mode Cardiac Dop (05/15/25 13:38) Chest Without Contrast (05/15/25 13:38) Hydrocodone-Acet 5/325mg Tab ([place] 5/32 (05/15/25 13:45) Acetaminophen Tab Or Cap (Tylenol Tablet (05/15/25 13:45) Ondansetron Hcl (Zofran) (05/15/25 13:45) Docusate Sodium Capsule (Colace Capsule) (05/15/25 13:45) Albuterol Medneb (Ventolin Medneb) (05/15/25 13:45) Ipratropium Medneb (Atrovent Medneb) (05/15/25 13:45) Calcitriol Capsule (Rocaltrol Capsule) (05/16/25 10:00) Cinacalcet Hydrochloride (Sensipar) (05/16/25 10:00) Carvedilol Tablet (Coreg Tablet) (05/15/25 22:00) Basic Metabolic Panel (05/16/25 04:00) Renal Standard(2gna,3gk,Lopho) (05/15/25 Dinner) Ct Angio Chest Contrast (05/15/25 14:09) Parathyroid Hormone Intact (05/16/25 04:00) Phosphorus (05/16/25 04:00) Hemodialysis Orders (05/16/25 07:00) Dialysis Nursing Message (05/16/25 07:00) Sodium Chloride 0.9% (05/16/25 07:00) Document Fluid Input And Outpu (05/16/25 07:00) Acute Hepatitis Panel (05/15/25 14:16) Vital Signs Date Time Temp Pulse Resp B/P (MAP) Pulse Ox O2 Delivery O2 Flow Rate FiO2 05/15/25 14:02 97.8 92 18 128/82 97 0.0 21 97.8 05/15/25 13:31 93 18 128/82 05/15/25 13:17 98 12 105/72 (83) 95 05/15/25 12:21 97.8 95 10 114/70 (85) 94 97.8 05/15/25 11:00 96 05/15/25 09:18 94 18 100 Room Air* 0 21 05/15/25 09:18 97.7 94 18 119/79 (92) 100 97.7 05/15/25 08:48 100 05/15/25 08:39 95 05/15/25 08:15 97.9 98 22 126/78 (94) 99 97.9 05/15/25 08:15 98 22 99 Room Air* 0 21 05/15/25 07:50 97.7 103 18 127/81 98 97.7 05/15/25 07:50 100 Laboratory Tests Test 05/15/25 08:29 White Blood Count 7.3 10^3/uL (4.4-10.8) Medications Medications Dose Ordered Sig/Sravanthi Route Start Time Stop Time Status Last Admin Dose Admin Acetaminophen/ Hydrocodone Bitart 1 tab ONCE ONCE PO 05/15/25 09:00 05/15/25 09:01 DC 05/15/25 09:43 1 TAB Hydromorphone HCl 1 mg ONCE ONCE IV 05/15/25 13:15 05/15/25 13:16 DC 05/15/25 13:31 1 MG Ondansetron HCl 4 mg ONCE ONCE IV 05/15/25 13:15 05/15/25 13:16 DC 05/15/25 13:30 4 MG Assessment/Plan Assessment/Plan Impression: -rule out ACS -ESRD with hemodialysis -primary hypertension -anemia of chronic disease -hold hemodialysis -rule out pulmonary embolism Plan: -admit to telemetry unit -CT angiogram of the chest -nephrology consultation -continue home antihypertensives -pain management -echocardiogram -further course of care per diagnostic findings. Troponins negative x3. EKG unremarkable Total time spent with patient discussing and formulating plan of care: 35 minutes. This medical document was created using an electronic medical record system with [employer] dictation system. Although this document has been carefully reviewed, there may still be some phonetic and typographical errors. These areas are purely typographical due to imperfections of the software programs, and do not reflect any compromise in the patient's medical care. 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 CONS 05/15/25 Transmitted -[place] 13:38 Echo 2d Mode Cardiac US 05/15/25 Logged DOP 13:[address] 05/15/25 Resulted 13:38 Hydrocodone-Acet PHA 05/15/25 In Process 5/325mg Tab ([place] 13:45 Acetaminophen Tab Or PHA 05/15/25 In Process Cap (Tylenol Tablet 13:45 Ondansetron Hcl PHA 05/15/25 In Process (Zofran) 13:45 Docusate Sodium PHA 05/15/25 In Process Capsule (Colace 13:45 Albuterol Medneb PHA 05/15/25 In Process (Ventolin Medneb) 13:45 Ipratropium Medneb PHA 05/15/25 In Process (Atrovent Medneb) 13:45 Calcitriol Capsule PHA 05/16/25 In Process (Rocaltrol Capsule) 10:00 Cinacalcet PHA 05/16/25 In Process Hydrochloride 10:00 Carvedilol Tablet PHA 05/15/25 In Process (Coreg Tablet) 22:00 Basic Metabolic Panel LAB 05/16/25 Verified 04:00 Renal DIET 05/15/25 Transmitted Standard(2gna,3gk,Lopho) Dinner Ct Angio Chest CT 05/15/25 Taken Contrast 14:09 Date of Service: May 15, 2025 Billing Provider: RJ BERNARD NP Common Visit Codes: [id number] INP/OBS CARE (HIGH) RJ BERNARD NP May 15, 2025 15:24
[2025-05-15] MEDS: NITROGLYCERIN 0.4 MG SL TAB SL PRN (21:04)
[2025-05-15] MEDS: CARVEDILOL 3.125 MG TAB PO SCH (23:15)
[2025-05-16] MEDS ORDERED: SODIUM CHL 0.9% 1000 ML BAG XX ONE (07:00)
--- NOTE | 2025-05-16 08:39 | DVHDS2 ---
Discharge Summary Date of Admission May 15, 2025 at 13:38 Date of Discharge: May 16, 2025 Admitting Diagnosis Rule out ACS Labs/Diagnostic Data: Laboratory Results Test 05/15/25 11:11 05/15/25 08:29 Troponin I High Sensitivity 13 ng/L (</=54) Hepatitis A IgM Antibody Negative Hepatitis B Surface Antigen Negative (Negative) Hepatitis B Core IgM Antibody Negative (Negative) Hepatitis C Antibody Negative (Negative) White Blood Count 7.3 10^3/uL (4.4-10.8) Red Blood Count 3.96 10^6/uL (4.5-5.90) Hemoglobin 10.7 g/dL (13.5-17.5) Hematocrit 32.6 % (41.0-53.0) Mean Corpuscular Volume 82.3 fL (80.0-100.0) Mean Corpuscular Hemoglobin 27.0 pg (28.0-32.0) Mean Corpuscular Hemoglobin Concent 32.8 g/dL (32.0-36.0) Red Cell Distribution Width 16.6 % (11.8-14.3) Platelet Count 223 10^3/uL (140-450) Mean Platelet Volume 7.0 fL (6.9-10.8) Neutrophils (%) (Auto) 63.8 % (37.0-80.0) Lymphocytes (%) (Auto) 17.2 % (10.0-50.0) Monocytes (%) (Auto) 15.7 % (0.0-12.0) Eosinophils (%) (Auto) 2.8 % (0.0-7.0) Basophils (%) (Auto) 0.5 % (0.0-2.0) Neutrophils # (Auto) 4.6 10 ^3/uL (1.6-8.6) Lymphocytes # (Auto) 1.3 10 ^3/uL (0.4-5.4) Monocytes # (Auto) 1.1 10 ^3/uL (0-1.3) Eosinophils # (Auto) 0.2 10 ^3/uL (0-0.8) Basophils # (Auto) 0 10 ^3/uL (0-0.2) Nucleated Red Blood Cells 0.0 % Erythrocyte Sedimentation Rate 50 mm/hr (0-20) Sodium Level 136 mmol/L (136-145) Potassium Level 4.1 mmol/L (3.5-5.1) Chloride Level 94 mmol/L (98-107) Carbon Dioxide Level 28 mmol/L (20-31) Anion Gap 14 (5-15) Blood Urea Nitrogen 32 mg/dL (9-23) Creatinine 13.04 mg/dL (0.700-1.30) Glomerular Filtration Rate Calc 5 mL/min (>90) BUN/Creatinine Ratio 2.5 (10.0-20.0) Serum Glucose 80 mg/dL (74-106) Calcium Level 8.9 mg/dL (8.7-10.4) C-Reactive Protein High Sensitivity 1.38 mg/dL (<1.0) Other Laboratory Tests 05/15/25 08:29 Brief Hx & Hospital Course: History of Present Illness Patient has a 34-year-old male presenting to the emergency room after being transported by EMS with reports of chest pain. Patient states that his pain began yesterday afternoon approximately 330 p.m. Pain was localized substernal, somewhat in the left side today. With his initial discomfort beginning in his throat. Pain was assessed as a 10/10 at the time of admission. He denies having any radiation of the pain, nausea, diaphoresis, or near-syncope. Patient also denies having any fevers, chills, body aches. Significant history of the patient includes end-stage renal disease with a home hemodialysis. Patient also has had a kidney transplant also with same kidney having nephrectomy. Patient will be admitted for further workup of his chest pain. Patient did receive IV Dilaudid to alleviate his pain while in the emergency room. Other history includes primary hypertension,? Atrial fibrillation, in obesity with current treatment with Zepbound. Course of hospitalization: Patient had troponin levels performed x3 which were all within normal limits. EKG without any ST changes. Given the patient's symptoms, decision was made to perform CT angiogram of the chest which was negative for any acute pathology including pulmonary embolism. Patient was noted to be treated in the emergency room with IV narcotics. Patient decided to leave against medical advice early this morning. Total time spent with patient discussing and formulating plan of care: 35 minutes. This medical document was created using an electronic medical record system with [employer] dictation system. Although this document has been carefully reviewed, there may still be some phonetic and typographical errors. These areas are purely typographical due to imperfections of the software programs, and do not reflect any compromise in the patient's medical care. Consults/Reason for consult Nephrology: ESRD with hemodialysis Condition at Discharge: Undetermined Final Diagnosis/Problems List Chest pain -rule out ACS -ESRD with hemodialysis -primary hypertension -anemia of chronic disease -hold hemodialysis -ruled out pulmonary embolism Discharge Disposition: AMA Discharge Instruct/Medications Scheduled Calcitriol (Calcitriol), 0.25 MCG PO DAILY, (Reported) Carvedilol (Carvedilol), 25 MG PO BID Cinacalcet Hydrochloride (Sensipar), 30 MG PO DAILY, (Reported) Clonidine Hydrochloride (Clonidine Hcl), 1 TAB PO BID, (Reported) Hydralazine Hcl (Hydralazine Hcl), 100 MG PO TID Losartan Potassium (Losartan Potassium), 25 MG PO DAILY Minoxidil (Loniten), 1 TAB PO BID, (Reported) Nifedipine (Nifedipine Er), 1 TAB PO DAILY Omeprazole (Gnp Omeprazole), 40 MG PO DAILY, (Reported) 36 Discharge Statement: "Patient was advised to return to the ER or call 911 if any headaches, dizziness, shortness of breath, chest pain, abdominal pain, bleeding, fevers, or worsening of medical condition. Patient was counseled about treatment plan, medications, possible side effects, patientverbalized understanding. All questions were answered to the best of my ability. This discharge took greater then 30 minutes in planning, reviewing documentation, counseling the patient, and discussing with other team members." ASSESSMENT ASSESSMENT Assessment Date of Service: May 16, 2025 Billing Provider: RJ BERNARD NP Common Visit Codes: [id number]/OBS DISCH DAY >30min RJ BERNARD NP May 16, 2025 08:39
[2025-05-16] MEDS ORDERED: CINACALCET HYDROCHLORIDE 30 MG TAB PO SCH (10:00)
[2025-05-16] MEDS ORDERED: CALCITRIOL 0.25 MCG CAP PO SCH (10:00)
--- NOTE | 2025-05-17 01:16 | ECG ---
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
--- NOTE | 2025-05-18 10:54 | ECG ---
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
--- NOTE | 2025-05-20 12:34 | ECG ---
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
== END 2025-05-16 03:21 | disposition left against medical advice (07) | DRG 311 ==
LOC: ER 07:46 → EDBD 07:46 → OVERFLOW 13:38 → TELE-WESTW 16:13
PROVIDERS: ADMIT Nurse Practitioner Acute Care; ATTEND Nurse Practitioner Acute Care
DX: I24.9 Acute ischemic heart disease, unspecified (principal); N18.6 End stage renal disease; I13.2 Hypertensive heart and chronic kidney disease with heart failure and with stage 5 chronic kidney disease, or end stage renal disease; D63.8 Anemia in other chronic diseases classified elsewhere; Z94.0 Kidney transplant status; Z99.2 Dependence on renal dialysis; E66.9 Obesity, unspecified; Z53.29 Procedure and treatment not carried out because of patient's decision for other reasons; Z68.39 Body mass index [BMI] 39.0-39.9, adult; I48.91 Unspecified atrial fibrillation; Z82.49 Family history of ischemic heart disease and other diseases of the circulatory system; Z88.5 Allergy status to narcotic agent; Z90.5 Acquired absence of kidney
CPT/HCPCS: 36415; 71045; 71250; 71275; 80048; 80074; 84484; 85025; 85652; 86141; 93005; 96374; G0378; J2405